=== PATIENT | female | born 1980 | race Hispanic/Latino ===

== ENCOUNTER 2017-12-11 06:06 | Day surgery (SDC) | payer OTHER ==
[2017-12-10 13:36] VITALS: BMI 18.4
[2017-12-11] MEDS ORDERED: Clindamycin 600mg/50ml NS 600 MG/50 ML BAG IVPB ONE (07:13)
[2017-12-11] MEDS ORDERED: Bupivacaine HCl 0.25% PF (10 ml) Inj ONE (07:13)
[2017-12-11] MEDS ORDERED: Propofol 10 mg/ml Inj (20 ML) ONE (07:14)
[2017-12-11] MEDS ORDERED: Silver Nitrate Topical - Stick ONE (07:14)
[2017-12-11] MEDS ORDERED: Chlorhexidine Gluconate 2OZ GEL TP ONE (07:14)
[2017-12-11] MEDS ORDERED: Rocuronium 10 mg/ml (5 ml) ONE ×2 (07:15→09:39)
[2017-12-11] MEDS ORDERED: Succinylcholine 200 mg/10 ml Inj IV ONE (07:15)
[2017-12-11] MEDS ORDERED: Midazolam 2 MG/2 ML VIAL ONE (07:15)
[2017-12-11] MEDS ORDERED: ePHEDrine 50 mg/ml Inj ONE (07:15)
[2017-12-11 08:26] LABS: HEMOGLOBIN 11.2 g/dL (12.0-16.0); MEAN CELL VOLUME 85.2 fl (81.0-99.0); MEAN CORPUSCULAR HEMOGLOBIN 28.4 pg (27.0-31.0); MEAN CORPUSCULAR HGB CONC 33.3 g/dL (33.0-37.0); RBC 3.96 Mil/uL (3.80-5.20); RED CELL DISTRIBUTION WIDTH 15.2 % (11.5-14.5); WHITE BLOOD COUNT 5.1 K/uL (4.8-10.8)
[2017-12-11] MEDS ORDERED: Phenylephrine 10 mg/ml Inj ONE (08:31)
[2017-12-11] MEDS ORDERED: Lactated Ringer's 1,000 ML IV ONE ×3 (09:00→09:45)
[2017-12-11] MEDS ORDERED: Morphine 1 mg/ml preservative-free Inj(Duramorph) ONE (09:18)
[2017-12-11] MEDS ORDERED: Neostigmine 1:1000 (1 mg/ml) Inj ONE (09:22)
[2017-12-11] MEDS ORDERED: Oxycodone/Acetaminophen 5/325 mg Tab PO PRN (11:47)
[2017-12-11] MEDS ORDERED: Lactated Ringer's 1,000 ML IV SCH (12:00)
[2017-12-11] MEDS: HYDROmorphone 0.5 mg/0.5 ml ISec IVP PRN ×4 (12:00→14:00)
[2017-12-11 12:13] VITALS: RESP 18
[2017-12-11] MEDS ORDERED: Oxycodone/Acetaminophen 5/325 mg Tab PO ONE (17:40)
[2017-12-11 19:45] VITALS: BP 104/67; PULSE 78; TEMP 98; O2SAT 99
--- NOTE | 2017-12-26 04:49 | OP ---
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 PROCEDURES PERFORMED: Cystoscopy with bilateral ureteral catheterization, robotic da Rita drainage and debridement of right ovarian abscess and debridement of pelvic inflammatory disease and excision of endometriosis. SURGEON: Rafa Davis MD WATCH HAIRSPRING ASSEMBLER: Addy Mcgraw MD from General Surgery. ESTIMATED BLOOD LOSS: 50 mL. COMPLICATIONS: None. SPECIMEN: Multiple specimens sent to Pathology. INDICATIONS FOR THE PROCEDURE: The patient is a 37-year-old who had undergone in around 07/2017 an oocyte retrieval for purpose of egg cryopreservation. At that point, an endometrioma was drained or entered with needle procedure and an infection had occurred. The patient subsequently developed signs of pelvic infection and was hospitalized at [facility] and given two days of intravenous antibiotics and sent home on oral antibiotics. After that, she appeared to have improved for symptomatology, but a left ovarian abscess had persisted. She had continue some antibiotics only for few weeks following. I evaluated with the CT scan and an MRI, the size of the mass appeared to be smaller. The patient was very much against losing her ovary, so we opted to proceed with the robotic approach and with maximum effort for ovarian preservation. All risks and benefits of the procedure were discussed with the patient including the possibility of removing the ovary and/or tubes but it was agreed with the patient that any effort would be performed to try to preserve her future fertility. The patient signed the consent and was taken to the OR. DESCRIPTION OF PROCEDURE: After adequate anesthesia was obtained, the patient was placed in the dorsal lithotomy position. She was prepped and draped. A time-out was taken according to the hospital policy. Extreme attention was made to having the patient appropriately and to making sure that her hips were not hyperflexed or hyperextend. Attention was first in the vaginal area where the cystoscopy was performed and IC-Green were injected in each individual ureter utilizing an open ended catheter. This was done because of potential adhesions and improve ability to visualize the catheter. Prophylactic antibiotics were given. Attention was in the abdomen, then an open laparoscopy was performed. The abdominal cavity was entered and three additional ports were placed, left upper quadrant, left mid quadrant and right upper quadrant. The pelvis was visualized revealing presence of adhesions. The appendix was pulled into a what appeared to be a mass. The right ovary transformed in a large mass. The first step of the procedure was a very small incision was made in the mass and cannula was inserted. Abundant amount of purulent like material was obtained and sent to Pathology. No spillage of the material although was done. The inside of the mass was lavaged and fibrinous area inside the ovary of the cyst was debrided and also placed in the bag and sent to Pathology. No spillage at all was performed of any disease. The appendix, which was attached to the mass and pulled into it, was removed by Dr. Mcgraw from General Surgery who will dictate this separately. Additional inflammatory areas were present and endometriosis in the right pelvic sidewall and they were excised including areas in the posterior cul-de-sac as well in the left pelvic sidewall. Any area that appeared to be either inflamed or infected was debrided and the pelvis was left in good condition at the end of the procedure. The pelvis was abundantly lavaged, but as I said before no spillage of any inflammatory or purulent material was made throughout the procedure. At this point, the instruments were removed. The da Rita scope was removed. The incisions were then closed with 0 PDS for the fascia and 4-0 Monocryl for the skin. At the end of the procedure, all tapes and instrument counts were correct, and the patient was taken to the recovery room in excellent condition. Rafa Davis MD
== END 2017-12-11 19:40 | disposition home or self-care (01) ==
LOC: H.OPSURG 06:06
PROVIDERS: ATTEND Obstetrics & Gynecology Reproductive Endocrinology
DX: N80.1 Endometriosis of ovary (principal); J45.909 Unspecified asthma, uncomplicated; D64.9 Anemia, unspecified; F90.9 Attention-deficit hyperactivity disorder, unspecified type; N73.9 Female pelvic inflammatory disease, unspecified; N80.3 Endometriosis of pelvic peritoneum; N83.201 Unspecified ovarian cyst, right side
CPT/HCPCS: 36415; 58662; 85027; 86850; 86900; 87070; 88304; 88305; 88307; C1729; J0330; J1170; J1885; J2001; J2250; J2270; J2370; J2405; J2704; J2710; J2765; J3010; J7030; J7040; J7120

== ENCOUNTER 2017-12-15 19:39 | Inpatient (IN) | payer OTHER ==
[2017-12-15 19:39] VITALS: BMI 18.4
[2017-12-15] MEDS ORDERED: Iohexol 240 (50 ml) PO ONE (20:08)
[2017-12-15] MEDS ORDERED: Iohexol 240 (50 ml) ONE (20:37)
[2017-12-15 20:42] LABS: VENOUS BLOOD GAS BASE EXCESS -4.9 mmol/L (0.0-2.0); VENOUS BLOOD GAS PCO2 71 mmHg (40-60); VENOUS BLOOD GAS PO2 26 mm/Hg (30-55); VENOUS BLOOD PH 7.16 (7.32-7.43)
[2017-12-15 20:51] LABS: BASO % 0.4 % (0.0-2.0); EOS # 0.3 K/uL (0.0-0.7); EOS % 2.2 % (0.0-4.0); HEMOGLOBIN 10.6 g/dL (12.0-16.0); LYMPH # 0.6 K/uL (1.0-4.3); MEAN CELL VOLUME 85.5 fl (81.0-99.0); MEAN CORPUSCULAR HEMOGLOBIN 28.3 pg (27.0-31.0); MEAN CORPUSCULAR HGB CONC 33.1 g/dL (33.0-37.0); MEAN PLATELET VOLUME 9.3 fl (7.2-11.7); MONO # 0.8 K/uL (0.0-0.8); MONO % 6.2 % (0.0-10.0); NEUT # 11.2 K/uL (1.8-7.0); NEUT % 86.2 % (50.0-75.0); PLATELET COUNT 346 K/uL (130-400); RBC 3.74 Mil/uL (3.80-5.20)
[2017-12-15 21:02] LABS: SQUAMOUS EPITHIAL 9 /hpf (0-5); URINE BACTERIA RARE (<OCC); URINE BILIRUBIN NEGATIVE (NEGATIVE); URINE BLOOD MODERATE (NEGATIVE); URINE CLARITY SLIGHTY-CLOUDY (Clear); URINE COLOR STRAW (YELLOW); URINE GLUCOSE (UA) NEG (Normal); URINE LEUKOCYTE ESTERASE SMALL Leu/uL (Negative); URINE PROTEIN NEGATIVE (NEGATIVE); URINE UROBILINOGEN 0.2-1.0 mg/dL (0.2-1.0)
[2017-12-15 21:03] LABS: ALB/GLOB RATIO 0.9 (1.0-2.1); ALBUMIN 3.6 g/dL (3.5-5.0); ALT/SGPT 50 U/L (9-52); AST/SGOT 34 U/L (14-36); BLOOD UREA NITROGEN 5 mg/dl (7-17); GFR AFRICAN-AMERICAN > 60; GFR NON-AFRICAN AMERICAN > 60; LIPASE 66 U/L (23-300)
[2017-12-15 21:04] LABS: INR 1.1 (0.9-1.2); PARTIAL THROMBOPLASTIN TIME 35.1 Seconds (25.6-37.1); PROTHROMBIN TIME 11.8 Seconds (9.8-13.1)
[2017-12-15 21:33] LABS: BANDS 1 % (0-2); EOSINOPHIL 1 % (0-7); LYMPHOCYTE 6 % (20-50); MONOCYTE 4 % (0-10); NEUTROPHIL 81 % (42-75); REACTIVE LYMPHOCYTES 7 % (0-0); TOTAL CELLS COUNTED 100
[2017-12-15 21:34] LABS: ANISOCYTOSIS SLIGHT; HYPOCHROMIC SLIGHT
[2017-12-15 21:36] LABS: PLATELET ESTIMATE NORMAL (NORMAL); TEARDROP CELLS SLIGHT
[2017-12-15] MEDS ORDERED: Clindamycin 600mg/50ml D5W 600 MG/50 ML VIAL IVPB STA (21:40)
[2017-12-15] MEDS ORDERED: Aztreonam 1 GM in Sodium Chloride 0.9% 100 ML IVPB STA (21:40)
[2017-12-15] MEDS ORDERED: Iohexol 300 100 ML IJ ONE (22:25)
[2017-12-15] MEDS ORDERED: Sodium Chloride 0.9% 50 ML IV ONE (22:25)
[2017-12-15] MEDS ORDERED: Sodium Chloride 0.9% 1,000 ML IV STA (22:30)
--- NOTE | 2017-12-15 22:32 | ED PDOC ---
HPI: Fever Fever Onset Was: 12/14/17 Symptoms Associated With Fever: denies: Vomiting, Diarrhea, Rash Additional Comments: 37 year old female presents to the ED complaining of fever onset yesterday postop day 4 pelvic abscess resection. States she developed chills on day to after appendectomy. Patient took Cipro last night but the fever persisted after 2 dosages. Also reports of diffuse swelling, mild sore throat and nausea. She took Tylenol without any relief. Denies cough, diarrhea, vomiting or rash. PMD: Dr. Nur and Dr. Joseph Past Medical History Reviewed: Historical Data, Nursing Documentation, Vital Signs Vital Signs: Last Vital Signs Temp 99.4 F 12/15/17 22:29 Pulse 83 12/15/17 22:29 Resp 16 12/15/17 22:29 BP 103/75 12/15/17 22:29 Pulse Ox 100 12/15/17 22:36 - Medical History PMH: Anemia (no meds), Anxiety Denies: Chronic Kidney Disease - Surgical History Surgical History: Cholecystectomy (2007) - Family History Family History: States: No Known Family Hx - Social History Current smoker - smoking cessation education provided: No - Home Medications Home Medications: Ambulatory Orders Medication Instructions Recorded Amphetamine Sulfate [Evekeo] 5 mg PO DAILY 12/10/17 clonazePAM [Klonopin] 0.5 mg PO DAILY PRN 12/10/17 Ketorolac Tromethamine [Toradol] 10 mg PO Q6 PRN 12/11/17 Ondansetron HCl [Zofran] 4 mg PO Q8 PRN 12/11/17 oxyCODONE/Acetaminophen [Percocet 5 - 325 mg PO Q6 PRN 12/11/17 5/325 mg Tab] - Allergies Allergies/Adverse Reactions: Allergies Allergy/AdvReac Type Severity Reaction Status Date / Time Penicillins Allergy RASH Verified 12/15/17 19:54 Sulfa (Sulfonamide Allergy RASH Verified 12/15/17 19:54 Antibiotics) Review of Systems ROS Statement: Except As Marked, All Systems Reviewed And Found Negative (As per HPI, otherwise negative) Constitutional: Positive for: Fever, Chills ENT: Positive for: Throat Pain Respiratory: Negative for: Cough Gastrointestinal: Positive for: Nausea (mild). Negative for: Vomiting, Diarrhea Skin: Positive for: Other (mild swelling). Negative for: Rash Physical Exam - Reviewed Nursing Documentation Reviewed: Yes Vital Signs Reviewed: Yes - Physical Exam Appears: Positive for: Non-toxic, No Acute Distress (tired) Head Exam: Positive for: ATRAUMATIC, NORMOCEPHALIC Skin: Positive for: Warm, Dry Eye Exam: Positive for: EOMI, PERRL ENT: Positive for: Pharynx Is (clear), Other (tacky mucus membranes) Neck: Positive for: Painless ROM, Supple Cardiovascular/Chest: Positive for: Tachycardia (regular rhythm) Respiratory: Positive for: Normal Breath Sounds. Negative for: Respiratory Distress Gastrointestinal/Abdominal: Positive for: Soft, Other (ecchymosis on abdomen and dressing on wound is clean and dry). Negative for: Mass, Guarding, Rebound Back: Positive for: Normal Inspection. Negative for: Decreased ROM Extremity: Positive for: Normal ROM. Negative for: Deformity Lymphatic: Negative for: Adenopathy Neurologic/Psych: Positive for: Alert. Negative for: Motor/Sensory Deficits - Laboratory Results Result Diagrams: 12/17/17 05:15 12/17/17 05:15 - ECG O2 Sat by Pulse Oximetry: 100 (RA) Pulse Ox Interpretation: Normal Medical Decision Making Medical Decision Making: Time: 2007 Initial Impression: fever postop Differential Diagnosis includes but is not limited to: pneumonia, UTI, wound infection, intra-abdominal abscess, sepsis 37 yo postop day 4 for surgery for pelvic abscess resection, endometriosis, and appendectomy, reporting fever with no improved after 36 hours antibiotics. Ddx include but not limited to persistent abscess, UTI, pneumonia, wound infection, intraabdominal infection, sepsis. Initial Plan: --VBG shock panel --ABD Pelvis PO & IV Contrast CT --CMP --Lipase --Magnesium --Phosphorous --Infectious Disease Consult --MANAGER GLO[employer] COMMUNICATIONS Consult --ED Urine Dipstick --CBC W/ Differential --PTT --Prothrombin Time --Chest Portable --Azactam 1gm --Cleocin 600mg --Dilaudid 0.5mg --Toradol 15mg --Tylenol 650mg --Zofran 4mg --Blood Culture --Urinalysis --Reevaluation Case discussed with Dr. Mcgraw to start on antibiotics and CT of abdomen pelvis PO & IV contrast ordered. Evaluated by resident assistant cna Dr. Schwarz. Also discussed with Dr. Penny for infectious disease consult and antibiotics ordered. Pt to be hospitalized for management. [address] scan inconclusive due to lack of contrast through small bowel. Will repeat for delayed images. Still concern for pelvic abscess. DW patient findings and plan of care. Scribe Attestation: Documented by Alexis Velásquez, acting as a scribe for Tamica Grubbs MD Provider Scribe Attestation: All medical record entries made by the Scribe were at my direction and personally dictated by me. I have reviewed the chart and agree that the record accurately reflects my personal performance of the history, physical exam, medical decision making, and the department course for this patient. I have also personally directed, reviewed, and agree with the discharge instructions and disposition. Disposition - Clinical Impression Clinical Impression: Pelvic abscess Counseled Patient/Family Regarding: Studies Performed - Disposition Disposition Time: 22:00 Condition: FAIR - Pt Status Changed To: Hospital Disposition Of: Inpatient - Admit Certification Admit to Inpatient:: After my assessment, the patient will require hospitalization for at least two midnights. This is because of the severity of symptoms shown, intensity of services needed, and/or the medical risk in this patient being treated as an outpatient. - POA Present On Arrival: None
[2017-12-15] MEDS ORDERED: Clindamycin 600mg/50ml NS 600 MG/50 ML BAG IVPB ONE (22:45)
--- NOTE | 2017-12-16 00:03 | CT ---
EXAM: CT Abdomen and Pelvis With Intravenous Contrast EXAM DATE/TIME: 12/15/2017 8:08 PM CLINICAL HISTORY: 37 years old, female; Pain; Abdominal pain; Prior surgery; Surgery date: 3-7 days post-operative; Surgery type: Appendectomy 12/11/2017. Pelvic abcess resection 12/11/2017. Endometrisis. Gall bladder removed; Additional info: Abd pain fever post surg TECHNIQUE: Axial computed tomography images of the abdomen and pelvis with intravenous contrast. All CT scans at this facility use one or more dose reduction techniques, viz.: automated exposure control; ma/kV adjustment per patient size (including targeted exams where dose is matched to indication; i.e. head); or iterative reconstruction technique. Coronal and sagittal reformatted images were created and reviewed. CONTRAST: 90 mL of [id number] administered intravenously. COMPARISON: There are no prior studies for comparison. FINDINGS: Lung bases: The heart size is normal. There is atelectasis at the lung bases. There are small effusions. ABDOMEN: Liver: unremarkable Gallbladder and bile ducts: Gallbladder is absent. Common duct is prominent. Pancreas: unremarkable Spleen: unremarkable Adrenals: unremarkable Kidneys and ureters: unremarkable Stomach and bowel: Stomach is partially distended with contrast. Rotation is normal. Small bowel is mildly dilated. There air-fluid levels. Small bowel is incompletely opacified with oral contrast which limits evaluation of the pelvis. There are multiple fluid-filled structures in the low pelvis, bowel loops versus abscess. There is enteric material in the terminal ileum. Appendix is surgically absent. There is moderate fecal material in the right colon. Left colon is incompletely distended which limits evaluation. PELVIS: Bladder: unremarkable Reproductive: Uterus and adnexal structures are unremarkable. ABDOMEN and PELVIS: Intraperitoneal space: There is free air in the abdomen. There is is a small amount of fluid in the pelvis. Bones/joints: There are no acute osseous abnormalities. Soft tissues: There is postoperative air in the left lower abdominal wall. Vasculature: Vascular structures are unremarkable. Lymph nodes: There is periaortic/retroperitoneal adenopathy. IMPRESSION: Postoperative free air and postoperative air in the left lower abdominal wall; limited evaluation of the pelvis due to incomplete small bowel opacification, unopacified small bowel loops versus pelvic abscess Additional nonemergent findings as described above.
--- NOTE | 2017-12-16 02:13 | CT ---
EXAM: CT Abdomen and Pelvis Without Intravenous Contrast CLINICAL HISTORY: 37 years old, female; Pain; Abdominal pain; Acute; Additional info: Delayed CT TECHNIQUE: Axial computed tomography images of the abdomen and pelvis without intravenous contrast. All CT scans at this facility use one or more dose reduction techniques, viz.: automated exposure control; ma/kV adjustment per patient size (including targeted exams where dose is matched to indication; i.e. head); or iterative reconstruction technique. Coronal and sagittal reformatted images were created and reviewed. COMPARISON: CT - ABD PELVIS PO IV CONTRAST 2017-12-15 22:43 FINDINGS: Lung bases: See below. Pleural space: Small bilateral pleural effusions with bibasilar atelectasis. Infiltrate not excluded. ABDOMEN: Liver: Mild intrahepatic biliary air. The liver is otherwise unremarkable for unenhanced technique. Gallbladder and bile ducts: There has been a cholecystectomy. Mild intrahepatic pneumobilia. No ductal dilation. Pancreas: Unremarkable. No ductal dilation. Spleen: Unremarkable. No splenomegaly. Adrenals: Unremarkable. No mass. Kidneys and ureters: There is contrast within the collecting system bilaterally. No obstructing stones. No hydronephrosis. Stomach and bowel: Mildly distended small bowel loops. There is contrast in the distal small bowel and colon. No obstruction. PELVIS: Appendix: There has been an appendectomy. Bladder: Distended with contrast and unremarkable. Reproductive: Unremarkable as visualized. ABDOMEN and PELVIS: Intraperitoneal space: A complex fluid collection in the pelvis is not well visualized on the current exam. However, the collection is highly suspicious for an abscess. This measures approximately 8.6 x 7.8 x 5 cm. Bones/joints: No acute fracture. No dislocation. Soft tissues: There is free intraperitoneal air again demonstrated. Soft tissue emphysema is noted in the left lateral abdominal wall. There is some fluid noted between the musculature of the abdominal wall. Findings may be related to recent surgery. Vasculature: Unremarkable. No abdominal aortic aneurysm. IMPRESSION: Complex pelvic free fluid highly suspicious for an abscess. Pneumoperitoneum, unchanged. Findings are likely postsurgical. Perforated viscus not completely excluded. Small bilateral pleural effusions with bibasilar atelectasis. Infiltrate not excluded. Mild intrahepatic pneumobilia. Probably secondary to previous sphincterotomy. Cholecystectomy. THIS REPORT CONTAINS FINDINGS THAT MAY BE CRITICAL TO PATIENT CARE. The findings were verbally communicaated via telephone conference with Dr. Nguyen at 2:12 AM EDT on 12/16/2017. The findings were acknowledged and understood. The patient has been admitted. Dr. Nguyen will discuss the findings with the surgical team.
[2017-12-16] MEDS ORDERED: Sodium Chloride 0.9% 1,000 ML IV SCH ×2 (05:15→18:30)
[2017-12-16] MEDS ORDERED: Aztreonam 1 GM in Sodium Chloride 0.9% 100 ML IVPB SCH (09:00)
[2017-12-16] MEDS ORDERED: Enoxaparin 30 mg Syringe SC SCH (09:00)
[2017-12-16] MEDS ORDERED: Clindamycin in NS 300 MG/50 ML BAG IVPB SCH (09:00)
[2017-12-16] MEDS: Acetaminophen 650mg/20.3ml solution UD PO PRN ×2 (09:45→20:40)
[2017-12-16] MEDS ORDERED: Lidocaine/Prilocaine CREAM 5GM TP ONE (10:13)
--- NOTE | 2017-12-16 11:24 | CP.PCM.HP ---
History of Present Illness - History of Present Illness History of Present Illness: Surgery H & P 37 F w PMH of ovarian abscess and had recent robotic laparoscopic surgery for ovarian abscess cystectomy, appendectomy and endometriosis removal last Sunday came to ED with fever and abd pain. PT reports that she had endometrioma of ovaries in the past and had the egg retrieval in July . SHe developed ovarian abscess and has been admitted to hospital in [facility] for 5 days for IV ABX. REports nausea but no emesis. Reporst incisional pain and low abd pain. Denies dysuria, hematuria, diarrhea, SOB, cough, rash, leg swelling. Pt reports that she has been using incentive spirometry. Tylenol didn't relive sx. LMP 12/06/2017 PMH : see above PSH : See above Present on Admission - Present on Admission Any Indicators Present on Admission: No Past Patient History - Past Medical History & Family History Past Medical History?: Yes - Past Social History Smoking Status: Former Smoker - CARDIAC Hx Cardiac Disorders: No - PULMONARY Hx Respiratory Disorders: Yes Hx Asthma: Yes - NEUROLOGICAL Hx Neurological Disorder: No - HEENT Hx HEENT Problems: No - RENAL Hx Chronic Kidney Disease: No - ENDOCRINE/METABOLIC Hx Endocrine Disorders: No - HEMATOLOGICAL/ONCOLOGICAL Hx Blood Disorders: Yes Hx Anemia: Yes (no meds) - INTEGUMENTARY Hx Dermatological Problems: No - MUSCULOSKELETAL/RHEUMATOLOGICAL Hx Musculoskeletal Disorders: No Hx Falls: No - GASTROINTESTINAL Hx Gastrointestinal Disorders: No - GENITOURINARY/GYNECOLOGICAL Hx Genitourinary Disorders: No - PSYCHIATRIC Hx Psychophysiologic Disorder: Yes Hx Anxiety: Yes Hx Substance Use: No - SURGICAL HISTORY Hx Surgeries: Yes Hx Cholecystectomy: Yes (2007) Other/Comment: Lap excision ovarian abscess with AP December 11, 2017 - ANESTHESIA Hx Anesthesia: Yes Hx Anesthesia Reactions: No Hx Malignant Hyperthermia: No Has any member of the family had a problem w/ anesthesia?: No Meds Allergies/Adverse Reactions: Allergies Allergy/AdvReac Type Severity Reaction Status Date / Time Penicillins Allergy RASH Verified 12/15/17 19:54 Sulfa (Sulfonamide Allergy RASH Verified 12/15/17 19:54 Antibiotics) Physical Exam - Constitutional Appears: Non-toxic - Head Exam Head Exam: ATRAUMATIC, NORMAL INSPECTION, NORMOCEPHALIC - Eye Exam Eye Exam: EOMI, Normal appearance, PERRL Pupil Exam: NORMAL ACCOMODATION, PERRL - ENT Exam ENT Exam: Mucous Membranes Moist, Normal Exam - Neck Exam Neck exam: Positive for: Normal Inspection - Respiratory Exam Respiratory Exam: Clear to Auscultation Bilateral, NORMAL BREATHING PATTERN - Cardiovascular Exam Cardiovascular Exam: REGULAR RHYTHM - GI/Abdominal Exam GI & Abdominal Exam: Normal Bowel Sounds, Soft, Tenderness. absent: Distended, Firm, Guarding, Hernia Additional comments: Low abd and incision TTP - Extremities Exam Extremities exam: Positive for: full ROM, normal inspection. Negative for: pedal edema, tenderness - Back Exam Back exam: NORMAL INSPECTION - Neurological Exam Neurological exam: Alert, CN II-XII Intact, Normal Gait, Oriented x3, Reflexes Normal - Psychiatric Exam Psychiatric exam: Normal Affect, Normal Mood - Skin Skin Exam: Dry, Intact, Warm Additional comments: ecchymosis on incisions Results - Vital Signs Recent Vital Signs: Last Vital Signs Temp 100.1 F H 12/16/17 07:42 Pulse 100 H 12/16/17 07:42 Resp 19 12/16/17 07:42 BP 103/66 12/16/17 07:42 Pulse Ox 97 12/16/17 07:42 - Labs Result Diagrams: 12/15/17 20:42 12/15/17 20:42 Labs: Laboratory Results - last 24 hr 12/15/17 12/15/17 12/15/17 20:36 20:42 20:42 WBC 13.0 H D RBC 3.74 L Hgb 10.6 L Hct 32.0 L MCV 85.5 MCH 28.3 MCHC 33.1 RDW 15.0 H Plt Count 346 MPV 9.3 Neut % (Auto) 86.2 H Lymph % (Auto) 5.[address] [facility] % (Auto) 6.2 Eos % (Auto) 2.2 Baso % (Auto) 0.4 Neut # (Auto) 11.2 H Lymph # (Auto) 0.[address] [facility] # (Auto) 0.8 Eos # (Auto) 0.3 Baso # (Auto) 0.0 Neutrophils % (Manual) 81 H Band Neutrophils % 1 Lymphocytes % (Manual) 6 L Reactive Lymphs % 7 H Monocytes % (Manual) 4 Eosinophils % (Manual) 1 Platelet Estimate Normal Hypochromasia (manual) Slight Anisocytosis (manual) Slight Macrocytosis (manual) Slight Tear Drop Cells Slight PT INR APTT pO2 26 L VBG pH 7.16 L* VBG pCO2 71 H* VBG HCO3 19.3 VBG Total CO2 27.5 VBG O2 Sat (Calc) 38.4 L VBG Base Excess -4.9 L VBG Potassium > 20.0 H* Sodium 123.0 L 136 Chloride 100.0 96 L Glucose 95 Lactate 1.5 FiO2 21.0 Crit Value Called To Vivienne guardado md Crit Value Called By 333 Crit Value Read Back Y Blood Gas Notified Time 2040 Potassium 3.9 Carbon Dioxide 24 Anion Gap 20 BUN 5 L Creatinine 0.5 L Est GFR ( Amer) > 60 Est GFR (Non-Af Amer) > 60 Random Glucose 96 Calcium 9.0 Phosphorus 4.0 Magnesium 2.0 Total Bilirubin 0.4 AST 34 ALT 50 Alkaline Phosphatase 148 H Total Protein 7.8 Albumin 3.6 Globulin 4.2 H Albumin/Globulin Ratio 0.9 L Lipase 66 Venous Blood Potassium > 20.0 H* Urine Color Urine Clarity Urine pH Ur Specific [place] Urine Protein Urine Glucose (UA) Urine Ketones Urine Blood Urine Nitrate Urine Bilirubin Urine Urobilinogen Ur Leukocyte Esterase Urine RBC (Auto) Urine Microscopic WBC Ur Squamous Epith Cells Urine Bacteria 12/15/17 12/15/17 20:42 20:42 WBC RBC Hgb Hct MCV MCH MCHC RDW Plt Count MPV Neut % (Auto) Lymph % (Auto) [facility] % (Auto) Eos % (Auto) Baso % (Auto) Neut # (Auto) Lymph # (Auto) [facility] # (Auto) Eos # (Auto) Baso # (Auto) Neutrophils % (Manual) Band Neutrophils % Lymphocytes % (Manual) Reactive Lymphs % Monocytes % (Manual) Eosinophils % (Manual) Platelet Estimate Hypochromasia (manual) Anisocytosis (manual) Macrocytosis (manual) Tear Drop Cells PT 11.8 INR 1.1 APTT 35.1 pO2 VBG pH VBG pCO2 VBG HCO3 VBG Total CO2 VBG O2 Sat (Calc) VBG Base Excess VBG Potassium Sodium Chloride Glucose Lactate FiO2 Crit Value Called To Crit Value Called By Crit Value Read Back Blood Gas Notified Time Potassium Carbon Dioxide Anion Gap BUN Creatinine Est GFR ( Amer) Est GFR (Non-Af Amer) Random Glucose Calcium Phosphorus Magnesium Total Bilirubin AST ALT Alkaline Phosphatase Total Protein Albumin Globulin Albumin/Globulin Ratio Lipase Venous Blood Potassium Urine Color Straw Urine Clarity Slighty-cloudy Urine pH 7.0 Ur Specific [place] < 1.005 Urine Protein Negative Urine Glucose (UA) Neg Urine Ketones 20 Urine Blood Moderate Urine Nitrate Negative Urine Bilirubin Negative Urine Urobilinogen 0.2-1.0 Ur Leukocyte Esterase Small Urine RBC (Auto) 2 Urine Microscopic WBC 20 H Ur Squamous Epith Cells 9 H Urine Bacteria Rare Assessment & Plan - Assessment and Plan (Free Text) Assessment: Post op fever likely 2/2 atelectasis and possible pelvic abscess CT: Fluids collection 8 x 8 x5 . Post op changes. -IR evaluation -ID consult -ABX -Trend labs. -Monitor VS DW Dr. Mcgraw
--- NOTE | 2017-12-16 12:54 | RAD ---
HISTORY: fever postop COMPARISON: No prior. FINDINGS: LUNGS: No active pulmonary disease. PLEURA: No significant pleural effusion identified, no pneumothorax apparent. CARDIOVASCULAR: Normal. OSSEOUS STRUCTURES: No significant abnormalities. VISUALIZED UPPER ABDOMEN: Pneumoperitoneum consistent with recent postoperative status. This was previously noted on CT examination of 12/15/2017 and 12/16/2017. OTHER FINDINGS: None. IMPRESSION: Pneumoperitoneum. No infiltrate/ effusion.
[2017-12-16] MEDS: HYDROmorphone 0.5 mg/0.5 ml ISec IVP PRN ×2 (13:28→20:17)
[2017-12-16 15:03] LABS: VENOUS BLOOD GAS BASE EXCESS 6.6 mmol/L (0.0-2.0); VENOUS BLOOD GAS PCO2 47 mmHg (40-60); VENOUS BLOOD GAS PO2 14 mm/Hg (30-55); VENOUS BLOOD PH 7.44 (7.32-7.43)
--- NOTE | 2017-12-16 15:03 | CP.PCM.PN ---
Subjective - Date & Time of Evaluation Date of Evaluation: 12/16/16 Time of Evaluation: 15:00 - Subjective Subjective: I D NOTE PATIENT EXAMINED ,EMR REVIEWED HISTORY TAKEN FROM PATIENT AND FAMILY HAVE STARTED CLINDAMYCIN/AZACTAM WILL CCONTINUE PENDING LABS AND CLINICAL RESPONSE .FULL CONSULT DICTATED Objective - Vital Signs/Intake and Output Vital Signs (last 24 hours): Temp Pulse Resp BP Pulse Ox 100.1 F H 100 H 19 103/66 97 12/16/17 07:42 12/16/17 07:42 12/16/17 07:42 12/16/17 07:42 12/16/17 07:42 - Medications Medications: Current Medications Acetaminophen (Tylenol 325mg Tab) 650 mg PO Q4 PRN PRN Reason: Fever >100.4 F Last Admin: 12/16/17 00:15 Dose: 650 mg Acetaminophen (Tylenol 650mg/20.3ml Solution Ud) 650 mg PO Q6 PRN PRN Reason: Pain, moderate (4-7) Last Admin: 12/16/17 09:45 Dose: 650 mg Enoxaparin Sodium (Lovenox) 30 mg SC DAILY DENIS PRN Reason: Protocol Hydromorphone HCl (Dilaudid) 0.5 mg IVP Q4 PRN PRN Reason: Pain, severe (8-10) Last Admin: 12/16/17 13:28 Dose: 0.5 mg Dextrose/Sodium Chloride (Dextrose 5%-0.9% Ns 500 Ml) 1,000 mls @ 100 mls/hr IV .Q10H [facility] Last Admin: 12/16/17 02:35 Dose: 100 mls/hr Aztreonam 1 gm/ Sodium (Chloride) 100 mls @ 100 mls/hr IVPB Q12 DENIS PRN Reason: Protocol Last Admin: 12/16/17 09:48 Dose: 100 mls/hr Clindamycin in NS (Clindamycin 300 Mg/50 Ml-Ns) 300 mg in 50 mls @ 50 mls/hr IVPB Q12 DENIS PRN Reason: Protocol Last Admin: 12/16/17 09:47 Dose: 50 mls/hr Ondansetron HCl (Zofran Odt) 4 mg PO Q8H PRN PRN Reason: Nausea/Vomiting - Labs Labs: 12/15/17 20:42 12/15/17 20:42 PT 11.8 Seconds (9.8-13.1) 12/15/17 20:42 INR 1.1 (0.9-1.2) 12/15/17:42 APTT 35.1 Seconds (25.6-37.1) 12/15/17 20:42
[2017-12-16 15:20] LABS: HEMOGLOBIN 9.9 g/dL (12.0-16.0); MEAN CELL VOLUME 84.5 fl (81.0-99.0); MEAN CORPUSCULAR HEMOGLOBIN 28.2 pg (27.0-31.0); MEAN CORPUSCULAR HGB CONC 33.4 g/dL (33.0-37.0); RBC 3.49 Mil/uL (3.80-5.20); RED CELL DISTRIBUTION WIDTH 14.9 % (11.5-14.5); WHITE BLOOD COUNT 16.6 K/uL (4.8-10.8)
[2017-12-16 15:30] LABS: INR 1.2 (0.9-1.2); PROTHROMBIN TIME 13.6 Seconds (9.8-13.1)
[2017-12-16 15:41] LABS: ALB/GLOB RATIO 0.9 (1.0-2.1); ALBUMIN 3.1 g/dL (3.5-5.0); ALT/SGPT 42 U/L (9-52); AST/SGOT 26 U/L (14-36); BLOOD UREA NITROGEN 3 mg/dl (7-17); CALCIUM 8.8 mg/dL (8.4-10.2); GFR AFRICAN-AMERICAN > 60; GFR NON-AFRICAN AMERICAN > 60
[2017-12-16] MEDS ORDERED: metroNIDAZOLE 500mg/100ml NS 100 ML IVPB SCH (18:15)
--- NOTE | 2017-12-16 18:44 | CP.PCM.PN ---
Subjective - Date & Time of Evaluation Date of Evaluation: 12/16/17 Time of Evaluation: 18:40 - Subjective Subjective: I D NOTE PATIENT SPIKED TEMP 103, WBC:16.6 DISCUSSED C ENGINEERING PROJECT DESIGNER AND ADVISED CHANGE IN RX TO VANCOMYCIN FLAGYL ,AND TOBRAMYCIN .WILL LIKELY NEED IR AND/OR SURGICAL INVERVENTION Objective - Vital Signs/Intake and Output Vital Signs (last 24 hours): Temp Pulse Resp BP Pulse Ox 103 F H 106 H 18 93/57 L 100 12/16/17 16:54 12/16/17 16:54 12/16/17 16:54 12/16/17 16:54 12/16/17 16:54 - Medications Medications: Current Medications Acetaminophen (Tylenol 325mg Tab) 650 mg PO Q4 PRN PRN Reason: Fever >100.4 F Last Admin: 12/16/17 16:02 Dose: 650 mg Acetaminophen (Tylenol 650mg/20.3ml Solution Ud) 650 mg PO Q6 PRN PRN Reason: Pain, moderate (4-7) Last Admin: 12/16/17 09:45 Dose: 650 mg Enoxaparin Sodium (Lovenox) 30 mg SC DAILY DENIS PRN Reason: Protocol Hydromorphone HCl (Dilaudid) 0.5 mg IVP Q4 PRN PRN Reason: Pain, severe (8-10) Last Admin: 12/16/17 13:28 Dose: 0.5 mg Tobramycin Sulfate 80 mg/ (Sodium Chloride) 102 mls @ 102 mls/hr IVPB Q12H DENIS Vancomycin HCl 1 gm/ Sodium (Chloride) 250 mls @ 166.667 mls/hr IVPB Q12 DENIS PRN Reason: Protocol Metronidazole (Flagyl 500mg/100ml Ns) 100 mls @ 100 mls/hr IVPB Q8 DENIS PRN Reason: Protocol Sodium Chloride (Sodium Chloride 0.9%) 1,000 mls @ 999 mls/hr IV .Q1H1M DENIS Stop: 12/17/17 18:20 Sodium Chloride (Sodium Chloride 0.9%) 1,000 mls @ 150 mls/hr IV .Q6H40M [facility] Stop: 12/17/17 18:32 Ondansetron HCl (Zofran Odt) 4 mg PO Q8H PRN PRN Reason: Nausea/Vomiting - Labs Labs: 12/16/17 15:10 12/16/17 15:10 PT 13.6 Seconds (9.8-13.1) H 12/16/17 15:10 INR 1.2 (0.9-1.2) 12/16/17 15:10 APTT 35.1 Seconds (25.6-37.1) 12/15/17 20:42
[2017-12-16] MEDS: Sodium Chloride 0.9% 1,000 ML IV SCH ×2 (19:54→22:18)
--- NOTE | 2017-12-17 00:58 | CON ---
CRITICAL CARE CONSULTATION DATE: 12/16/2017 LOCATION: The patient in room 622, being admitted to ICU. HISTORY OF PRESENT ILLNESS: Ms. Ash is a 37-year-old female with past medical history significant for ovarian abscess, had status post abscess, status post robotic laparoscopic surgery for ovarian abscess, cystectomy, appendectomy, and endometriosis removal last Sunday, admitted through emergency room, and complaining of fever and abdominal pain. Reportedly, she had endometrioma of ovaries in the past and had the retrieval done in July. She developed ovarian abscess and has been admitted to the hospital in for 5 days for IV antibiotics. The patient reports nausea, but no vomiting and also associated with incisional pain, lower abdominal pain, fever, and chills. The patient's last menstrual period 12/06/2017. PAST MEDICAL HISTORY: As noted plus asthma and former smoker. PAST SURGICAL HISTORY: As noted above. CURRENT MEDICATIONS: Include Tylenol 650 every 4 hours p.r.n., Lovenox 30 mg subcutaneously daily, Dilaudid 0.5 mg IV every 4 hours p.r.n. for pain, Flagyl 500 mg every 8 hours., Zofran 4 mg p.o. every 8 hours p.r.n., sodium chloride given bolus and running at 150 mL per hour, tobramycin 80 mg IV every 12 hours, and vancomycin 1 g IV every 12 hours. ALLERGIES: PENICILLIN AND SULFA. PHYSICAL EXAMINATION: VITAL SIGNS: Temperature 103, heart rate 106, blood pressure 93/57, respiratory rate 18, and saturating 100% on room air. HEAD, EYES, EARS, NOSE AND THROAT: Pupils equal, round, and reactive to light and accommodation. Extraocular muscles intact. Conjunctivae pink. Sclerae white. NECK: Supple. Oral mucosa moist. CHEST: Bilateral breath sounds diminished in intensity. Clear to auscultation. HEART: Rhythm regular. S1 and S2 normal. ABDOMEN: Bowel sounds present. Soft. Mild distention. EXTREMITIES: No palpable cord. DP palpable. NEUROLOGIC: Nonfocal. LABORATORY DATA: WBC 16.6, hemoglobin 9.9, hematocrit 29.5, and platelet count of 302. PT 13.6 and INR 1.2. VBG; lactate 1.1. SMA-7; sodium 134, potassium 3.9, chloride 96, CO2 of 26, blood urea nitrogen 3, creatinine 0.5, anion gap 12, random glucose 131, calcium 8.8, phosphorus 4, and magnesium 2. Total bilirubin 0.3, AST 26, ALT 42, alkaline phosphatase 129, total protein is 6.7, albumin 3.1, and lipase 66. Microbiology report pending. Chest x-ray from yesterday pneumoperitoneum consistent with recent postoperative status. CT abdomen and pelvis, pneumoperitoneum complex pelvic free fluid highly suspicious for abscess, mild intrahepatic pneumobilia secondary to previous sphincterotomy. IMPRESSION AND PLAN: 1. Neurologic: Alert, awake, and oriented x3. 2. Pulmonary: Postoperative atelectasis. Continue incentive spirometry. 3. Cardiac: Hypotension secondary to hypovolemia/sepsis. 4. Infectious disease: Sepsis secondary to possible pelvic abscess, status post robotic surgery with resection of pelvic abscess. Appreciate ID followup, currently on flagyl,vancomycin and tobramycin. ALLERGY TO PENICILLIN AND SULFA. 5. Hematology: Leukocytosis secondary to sepsis, anemia secondary to acute blood loss from previous surgery. 6. Endocrine: No acute issues. Maintain _ blood sugar less than 180. Continue deep venous thrombosis and gastrointestinal prophylaxis. Analgesics as needed to contol pain. Rancho Bell MD LEILANI
[2017-12-17] MEDS ORDERED: Lidocaine/Prilocaine CREAM 5GM TP ONE (01:19)
[2017-12-17] MEDS: HYDROmorphone 0.5 mg/0.5 ml ISec IVP PRN ×2 (03:15→07:47)
[2017-12-17] MEDS: metroNIDAZOLE 500mg/100ml NS 100 ML IVPB SCH ×3 (04:55→20:00)
[2017-12-17] MEDS: Sodium Chloride 0.9% 1,000 ML IV SCH ×4 (04:56→14:51)
[2017-12-17 06:05] LABS: BASO % 0.2 % (0.0-2.0); EOS # 0.2 K/uL (0.0-0.7); HEMOGLOBIN 9.4 g/dL (12.0-16.0); LYMPH # 0.6 K/uL (1.0-4.3); MEAN CELL VOLUME 84.9 fl (81.0-99.0); MEAN CORPUSCULAR HEMOGLOBIN 28.2 pg (27.0-31.0); MEAN CORPUSCULAR HGB CONC 33.2 g/dL (33.0-37.0); MEAN PLATELET VOLUME 9.1 fl (7.2-11.7); MONO # 1.5 K/uL (0.0-0.8); MONO % 8.1 % (0.0-10.0); NEUT # 16.2 K/uL (1.8-7.0); NEUT % 87.7 % (50.0-75.0); RBC 3.34 Mil/uL (3.80-5.20); RED CELL DISTRIBUTION WIDTH 15.3 % (11.5-14.5); WHITE BLOOD COUNT 18.5 K/uL (4.8-10.8)
[2017-12-17 06:06] LABS: ALB/GLOB RATIO 0.9 (1.0-2.1); ALT/SGPT 44 U/L (9-52); AST/SGOT 51 U/L (14-36); BLOOD UREA NITROGEN 3 mg/dl (7-17); CALCIUM 8.8 mg/dL (8.4-10.2); GFR AFRICAN-AMERICAN > 60; GFR NON-AFRICAN AMERICAN > 60
[2017-12-17] MEDS ORDERED: Enoxaparin 40 mg Syringe SC SCH (09:00)
[2017-12-17] MEDS ORDERED: Chlorhexidine Gluconate 1 APPL/PKT TP ONE (09:18)
--- NOTE | 2017-12-17 09:41 | CP.PCM.PN ---
Subjective - Date & Time of Evaluation Date of Evaluation: 12/17/17 Time of Evaluation: 07:20 - Subjective Subjective: General Surgery Pt S&E. Febrile overnight and this AM. WBC increased from 16.6 to 18.5. NPO. Case Discussed with IR, unable to access abscess at this time due to location. Pain controlled with pain meds. Objective - Vital Signs/Intake and Output Vital Signs (last 24 hours): Temp Pulse Resp BP Pulse Ox 101.9 F H 99 H 21 106/60 100 12/17/17 08:00 12/17/17 08:00 12/17/17 08:00 12/17/17 08:00 12/17/17 08:00 Intake and Output: 12/17/17 12/17/17 06:59 18:59 Intake Total 2600 Output Total 1250 Balance 1350 - Medications Medications: Current Medications Acetaminophen (Tylenol 650 Mg Supp) 650 mg SD Q6 PRN PRN Reason: Fever >100.4 F Enoxaparin Sodium (Lovenox) 40 mg SC DAILY DENIS PRN Reason: Protocol Hydromorphone HCl (Dilaudid) 0.5 mg IVP Q4 PRN PRN Reason: Pain, severe (8-10) Last Admin: 12/17/17 07:47 Dose: 0.5 mg Tobramycin Sulfate 80 mg/ (Sodium Chloride) 102 mls @ 102 mls/hr IVPB Q12H [facility] Last Admin: 12/17/17 05:21 Dose: 102 mls/hr Vancomycin HCl 1 gm/ Sodium (Chloride) 250 mls @ 166.667 mls/hr IVPB Q12 DENIS PRN Reason: Protocol Last Admin: 12/17/17 08:28 Dose: 166.667 mls/hr Sodium Chloride (Sodium Chloride 0.9%) 1,000 mls @ 999 mls/hr IV .Q1H1M [facility] Stop: 12/17/17 18:20 Last Admin: 12/16/17 21:03 Dose: 999 mls/hr Sodium Chloride (Sodium Chloride 0.9%) 1,000 mls @ 150 mls/hr IV .Q6H40M [facility] Stop: 12/17/17 18:32 Last Admin: 12/17/17 08:29 Dose: 150 mls/hr Metronidazole (Flagyl 500mg/100ml Ns) 100 mls @ 100 mls/hr IVPB Q8@0500,1300, 2100 DENIS PRN Reason: Protocol Last Admin: 12/17/17 04:55 Dose: 100 mls/hr Ondansetron HCl (Zofran Odt) 4 mg PO Q8H PRN PRN Reason: Nausea/Vomiting - Labs Labs: 12/17/17 05:15 12/17/17 05:15 PT 13.6 Seconds (9.8-13.1) H 12/16/17 15:10 INR 1.2 (0.9-1.2) 12/16/17 15:10 APTT 35.1 Seconds (25.6-37.1) 12/15/17 20:42 - Constitutional Appears: Non-toxic, No Acute Distress - Head Exam Head Exam: ATRAUMATIC, NORMOCEPHALIC - Eye Exam Eye Exam: EOMI. absent: Scleral icterus - Respiratory Exam Respiratory Exam: NORMAL BREATHING PATTERN. absent: Respiratory Distress - Cardiovascular Exam Cardiovascular Exam: Tachycardia ( 100-110 at time of exam), REGULAR RHYTHM - GI/Abdominal Exam GI & Abdominal Exam: Guarding (mild), Soft, Tenderness (in suprapubic area). absent: Distended, Firm, Rigid Additional comments: port sites C/D/I - Extremities Exam Extremities Exam: Normal Capillary Refill. absent: Pedal Edema - Neurological Exam Neurological Exam: Alert, Awake, Oriented x3 - Psychiatric Exam Psychiatric exam: Anxious - Skin Skin Exam: Dry, Warm Assessment and Plan - Assessment and Plan (Free Text) Assessment: 37F with pelvic abscess Plan: NPO planning OR today for drainage of intra-abdominal abscess IVF Analgesia D/W Dr. Mariluz Delarosa PGY4
[2017-12-17] MEDS ORDERED: Bupivacaine HCl 0.25% PF (10 ml) Inj ONE (12:39)
[2017-12-17] MEDS ORDERED: Lidocaine 2% Inj (20ml) ONE (12:40)
[2017-12-17] MEDS ORDERED: Propofol 10 mg/ml Inj (20 ML) ONE (12:44)
[2017-12-17] MEDS ORDERED: Midazolam 2 MG/2 ML VIAL ONE (12:45)
[2017-12-17] MEDS ORDERED: Neostigmine 1:1000 (1 mg/ml) Inj ONE (12:45)
[2017-12-17] MEDS ORDERED: Lidocaine 4% (Laryng-O-Jet) Kit MM ONE (12:45)
[2017-12-17] MEDS ORDERED: Succinylcholine 200 mg/10 ml Inj IV ONE (12:45)
[2017-12-17] MEDS ORDERED: Rocuronium 10 mg/ml (5 ml) ONE (12:46)
--- NOTE | 2017-12-17 12:54 | CP.PCM.PN ---
Subjective - Date & Time of Evaluation Date of Evaluation: 12/16/17 Time of Evaluation: 12:57 - Subjective Subjective: i d note patient transfered to ICU last night c temp of 102,wbc is 18.5 now going to O.R. for drainage continue same antiobiotic coverage no new cultures as yet post op discussed c will order echocardiogram Objective - Vital Signs/Intake and Output Vital Signs (last 24 hours): Temp Pulse Resp BP Pulse Ox 99.6 F 103 H 18 101/56 L 99 12/17/17 12:00 12/17/17 12:00 12/17/17 12:00 12/17/17 12:00 12/17/17 12:00 Intake and Output: 12/17/17 12/17/17 06:59 18:59 Intake Total 2600 634 Output Total 1250 660 Balance 1350 -26 - Medications Medications: Current Medications Acetaminophen (Tylenol 650 Mg Supp) 650 mg [place] Q6 PRN PRN Reason: Fever >100.4 F Last Admin: 12/17/17 09:00 Dose: 650 mg Enoxaparin Sodium (Lovenox) 40 mg SC DAILY DENIS PRN Reason: Protocol Hydromorphone HCl (Dilaudid) 0.5 mg IVP Q4 PRN PRN Reason: Pain, severe (8-10) Last Admin: 12/17/17 07:47 Dose: 0.5 mg Tobramycin Sulfate 80 mg/ (Sodium Chloride) 102 mls @ 102 mls/hr IVPB Q12H [facility] Last Admin: 12/17/17 05:21 Dose: 102 mls/hr Vancomycin HCl 1 gm/ Sodium (Chloride) 250 mls @ 166.667 mls/hr IVPB Q12 DENIS PRN Reason: Protocol Last Admin: 12/17/17 08:28 Dose: 166.667 mls/hr Sodium Chloride (Sodium Chloride 0.9%) 1,000 mls @ 999 mls/hr IV .Q1H1M [facility] Stop: 12/17/17 18:20 Last Admin: 12/16/17 21:03 Dose: 999 mls/hr Sodium Chloride (Sodium Chloride 0.9%) 1,000 mls @ 150 mls/hr IV .Q6H40M [facility] Stop: 12/17/17 18:32 Last Admin: 12/17/17 08:29 Dose: 150 mls/hr Metronidazole (Flagyl 500mg/100ml Ns) 100 mls @ 100 mls/hr IVPB Q8@0500,1300, 2100 DENIS PRN Reason: Protocol Last Admin: 12/17/17 12:02 Dose: 100 mls/hr Ondansetron HCl (Zofran Odt) 4 mg PO Q8H PRN PRN Reason: Nausea/Vomiting - Labs Labs: 12/17/17 05:15 12/17/17 05:15 PT 13.6 Seconds (9.8-13.1) H 12/16/17 15:10 INR 1.2 (0.9-1.2) 12/16/17 15:10 APTT 35.1 Seconds (25.6-37.1) 12/15/17 20:42
[2017-12-17] MEDS ORDERED: Sodium Chloride 0.9% 1,000 ML IV ONE (13:05)
[2017-12-17] MEDS ORDERED: Lidocaine 2% Inj (20ml) IJ ONE (13:25)
[2017-12-17] MEDS ORDERED: Oxycodone/Acetaminophen 5/325 mg Tab PO PRN (14:24)
--- NOTE | 2017-12-17 14:27 | PCM.SURG1 ---
Surgeon's Initial Post Op Note - Surgeon's Notes Surgeon: Dr. Mcgraw Church Warden: Jada Schwarz PHY2 Type of Anesthesia: General Endo, Local Pre-Operative Diagnosis: Pelvic abscess Operative Findings: Pelvic abscess Post-Operative Diagnosis: Pelvic abscess Operation Performed: laparoscopic drainage of pelvic abscess placement of drains Specimen/Specimens Removed: abscess Estimated Blood Loss: EBL {In ML}: 20 Blood Products Given: N/A Drains Used: Valdo Post-Op Condition: Good Date of Surgery/Procedure: 12/17/17 Time of Surgery/Procedure: 14:27
[2017-12-17] MEDS ORDERED: HYDROmorphone 0.5 mg/0.5 ml ISec IVP PRN (14:30)
--- NOTE | 2017-12-17 23:16 | PN ---
CRITICAL CARE PROGRESS NOTE DATE: 12/17/2017 LOCATION: The patient in ICU, bed 421. TIME SPENT: 35 minutes. SUBJECTIVE: The patient is seen and evaluated at the bedside. Past medical, surgical, and social history reviewed. A 37-year-old female with past medical history significant for ovarian abscess, status post robotic laparoscopic surgery for ovarian abscess, cystectomy, appendectomy and endometriosis removal last Sunday, admitted on 12/16/2017 with fever, chills, abdominal pain, noted to have recurrent abscess, underwent laparoscopy today with washout of the abscess, extubated, remains alert and awake, and follows commands appropriate. Complaining of dry mouth, also complaining of abdominal pain, more so at the site of insertion. Denies nausea or vomiting. No fever or chills noted. OBJECTIVE: CURRENT VITAL SIGNS: T-max 100.6, heart rate 103, blood pressure 101/56, and saturation 100%. Intake 2600 and output 1250, positive balance 1350. HEAD, EYES, EARS, NOSE AND THROAT: Pupils are reactive. Conjunctivae pink. Mouth dry. CHEST: Bilateral breath sounds clear to auscultation. Reduced inspiratory effort. HEART: Rhythm regular. S1 and S2 normal. No audible murmur. ABDOMEN: Bowel sounds present, but diminished, slightly distended and tender. EXTREMITIES: No edema. NEUROLOGIC: Nonfocal. SKIN: Without any rash. CURRENT MEDICATIONS: Vancomycin 1 g IV every 12 hours, tobramycin 80 mg IV every 12 hours, Flagyl 500 mg IV every 8 hours, Tylenol 650 every 6 hours p.r.n. for fever more than 100.4, Lovenox 40 subcutaneously daily, Toradol 30 mg IV every 6 hours p.r.n. morphine sulfate 4 mg IV push every 4 hours p.r.n. for breakthrough pain, Percocet 5/325 mg 2 tablets every 4 hours p.r.n., and normal saline at 100 mL/hour. LABORATORY DATA: WBC 18.5, hemoglobin 9.4, hematocrit 28.4, platelet count 278, neutrophils 87.7, lymphocytes 3, and monocytes 8.1. PT 13.6 and INR 1.2. SMA-7; sodium 135, potassium 4.7, chloride 101, CO2 of 27, blood urea nitrogen 12, creatinine 0.6, calcium 8.8, and random glucose 108. AST 51, ALT 44, alkaline phosphatase 121, total protein 6.4, albumin 3, and lipase 66. Urinalysis negative. Microbiology; blood culture no growth reported. Abdominal fluid Gram-stain culture report pending. Chest x-ray, pneumoperitoneum, no infiltrate or effusion. Abdominal CT, complex pelvic free fluid highly suspicious for abscess, pneumoperitoneum, unchanged small bilateral pleural effusion with bibasilar atelectasis or infiltrate, mild intrahepatic pneumobilia. IMPRESSION AND PLAN: 1. Neurologic: Alert and oriented to name, place, and time. 2. Pulmonary: Postoperative atelectasis. Continue incentive spirometry. 3. Cardiac: Hypotension resolved secondary to hypovolemia. Continue current IV hydration with normal saline at 100 mL/hour. 4. Infectious disease: Sepsis secondary to possible pelvic abscess, status post re-exploration and intra-abdominal washout. Followup for Gram-stain and culture of the intra-abdominal fluid sent to lab. Continue on vancomycin, tobramycin, and Flagyl. ALLERGY TO PENICILLIN AND SULFA. 5. Hematology: Leukocytosis secondary to intra-abdominal abscess. 6. Endocrine: No acute issues noted. Continue analgesics as needed to reduce abdominal discomfort on DVT and GI prophylaxis. Rancho Bell MD
[2017-12-18] MEDS: Sodium Chloride 0.9% 1,000 ML IV SCH (01:00)
[2017-12-18] MEDS: Oxycodone/Acetaminophen 5/325 mg Tab PO PRN ×3 (01:20→23:52)
[2017-12-18] MEDS: metroNIDAZOLE 500mg/100ml NS 100 ML IVPB SCH ×3 (05:10→20:54)
[2017-12-18 06:55] LABS: HEMOGLOBIN 9.3 g/dL (12.0-16.0); MEAN CELL VOLUME 85.5 fl (81.0-99.0); MEAN CORPUSCULAR HEMOGLOBIN 28.2 pg (27.0-31.0); RBC 3.28 Mil/uL (3.80-5.20); RED CELL DISTRIBUTION WIDTH 15.2 % (11.5-14.5); WHITE BLOOD COUNT 14.6 K/uL (4.8-10.8)
[2017-12-18 07:00] LABS: BLOOD UREA NITROGEN 5 mg/dl (7-17); CALCIUM 8.2 mg/dL (8.4-10.2); GFR AFRICAN-AMERICAN > 60; GFR NON-AFRICAN AMERICAN > 60
--- NOTE | 2017-12-18 11:01 | PN ---
DATE: 12/18/2017 CRITICAL CARE PROGRESS NOTE LOCATION: The patient in ICU, bed 421. TIME SPENT: 35 minutes. SUBJECTIVE: The patient is seen and evaluated at the bedside. Case was discussed in multidisciplinary ICU rounds in the morning. Past medical, surgical, family, and social history noted. A 37-year-old female with history significant for ovarian abscess, status post robotic laparoscopic surgery for ovarian abscess, cystectomy, appendectomy, and endometriosis removal. Admitted with fever, chills, abdominal pain, sepsis noted with recurrent collection in the status post laparoscopic surgery and irrigation with abdominal washout. Overnight temperature spikes reduced. Telemetry sinus rhythm, normotensive. This morning, sitting at the side of the bed, tangling her legs, complaining of incisional pain but less than yesterday. Has not had a bowel movement. No plan is yet, started on regular feeding, tolerating well. No nausea or vomiting. OBJECTIVE: VITAL SIGNS: T-max 100.6, heart rate 81 and regular, blood pressure 101/60, mean arterial pressure 73, respiratory rate 15, saturation 100% on room air. INTAKE AND OUTPUT: Intake 3214, output 3080. Positive balance 134. Weight 133 pounds. HEENT: Pupils are reactive. Conjunctivae pink. Sclerae white. NECK: Supple. Trachea central. CHEST: Bilateral breath sounds. Clear to auscultation. HEART: Rhythm regular. S1 and S2 normal. No audible murmur. ABDOMEN: Mildly distended, mild tenderness. Incision site clean without drainage. EXTREMITIES: Trace edema. NEUROLOGIC: Nonfocal. CURRENT MEDICATIONS: Vancomycin 1 g IV every 12 hours, tobramycin 80 mg IV every 12 hours, Flagyl 500 mg IV every 8 hours, Tylenol 650 every 6 hours p.r.n. for temperature more than 100.4, Toradol 30 mg IV every 6 hours p.r.n. for moderate pain, morphine sulfate 4 mg IV every 4 hours p.r.n. for breakthrough pain, Zofran 4 mg p.o. every 8 hours p.r.n. for nausea and vomiting, Lovenox 40 subcu daily, Percocet 5/325 mg 2 tablets every 4 hours p.r.n. for moderate pain, and Percocet 5/325 mg 1 tablet every 4 hours for mild pain. LABORATORY DATA: WBC 14.6, hemoglobin 9.3, hematocrit 28.1, and platelet count 352,000. PT 13.6 and INR 1.2. ABG, pH of 7.4, pCO2 of 47, and lactate of 1.1. Sodium 135, potassium 4.2, chloride 101, CO2 24, BUN 5, creatinine of 0.5, random glucose 96, calcium 8.2, AST 51, ALT 44, alkaline phosphatase 121, and total protein 6.4. Microbiology, blood culture no growth reported. Echocardiogram report pending. IMPRESSION AND PLAN: 1. Neuro: Alert and oriented to name, place and time. 2. Pulmonary: Postoperative atelectasis, improving. Continue incentive spirometry. 3. Cardiac: Hypertension resolved secondary to hypovolemia, continue current IV hydration. 4. Infectious disease: Sepsis secondary to pelvic abscess, status post re-exploration and intra-abdominal washout. Continue vancomycin, tobramycin, and Flagyl. Follow gram stain and culture from the intra-abdominal fluid. The patient is ALLERGIC TO PENICILLIN AND SULFA. 5. Hematology: Leukocytosis secondary to intra-abdominal abscess trending down. Hemoglobin and hematocrit stable. 6. Endocrine: No acute issues. 7. Continue analgesics as needed to reduce postoperative pain. 8. Continue DVT prophylaxis on Lovenox 40 subcu daily. Rancho Bell MD
--- NOTE | 2017-12-18 11:14 | CP.PCM.PN ---
Subjective - Date & Time of Evaluation Date of Evaluation: 12/18/17 Time of Evaluation: 11:10 - Subjective Subjective: Surgery Pt seen and examined. Pt underwent surgery yesterday. Tolerated it well. Continued fever 100.6 at midnight. Denies nausea, diarrhea, CP, SOB. + amb. + void. Tolerating diet. Objective - Vital Signs/Intake and Output Vital Signs (last 24 hours): Temp Pulse Resp BP Pulse Ox 98.2 F 86 19 99/63 L 100 12/18/17 08:00 12/18/17 10:00 12/18/17 10:00 12/18/17 10:00 12/18/17 10:00 Intake and Output: 12/18/17 12/18/17 06:59 18:59 Intake Total 1400 1050 Output Total 2120 Balance -720 1050 - Medications Medications: Current Medications Acetaminophen (Tylenol 325mg Tab) 650 mg PO Q6 PRN PRN Reason: Fever >100.4 F Last Admin: 12/17/17 23:21 Dose: 650 mg Enoxaparin Sodium (Lovenox) 40 mg SC DAILY DENIS PRN Reason: Protocol Tobramycin Sulfate 80 mg/ (Sodium Chloride) 102 mls @ 102 mls/hr IVPB Q12H [facility] Last Admin: 12/18/17 05:55 Dose: 102 mls/hr Vancomycin HCl 1 gm/ Sodium (Chloride) 250 mls @ 166.667 mls/hr IVPB Q12 DENIS PRN Reason: Protocol Last Admin: 12/18/17 10:09 Dose: 166.667 mls/hr Metronidazole (Flagyl 500mg/100ml Ns) 100 mls @ 100 mls/hr IVPB Q8@0500,1300, 2100 DENIS PRN Reason: Protocol Last Admin: 12/18/17 05:10 Dose: 100 mls/hr Sodium Chloride (Sodium Chloride 0.9%) 1,000 mls @ 100 mls/hr IV .Q10H [facility] Last Admin: 12/18/17 01:00 Dose: 100 mls/hr Ketorolac Tromethamine (Toradol) 30 mg IVP Q6 PRN PRN Reason: Pain, moderate (4-7) Last Admin: 12/18/17 11:05 Dose: 30 mg Morphine Sulfate (Morphine) 4 mg IVP Q4 PRN PRN Reason: breakthough pain Last Admin: 12/17/17 19:53 Dose: 4 mg Ondansetron HCl (Zofran Odt) 4 mg PO Q8H PRN PRN Reason: Nausea/Vomiting Oxycodone/Acetaminophen (Percocet 5/325 Mg Tab) 2 tab PO Q4 PRN PRN Reason: Pain, moderate (4-7) Stop: 12/20/17 14:25 Oxycodone/Acetaminophen (Percocet 5/325 Mg Tab) 1 tab PO Q4 PRN PRN Reason: Pain, Mild (1-3) Stop: 12/21/17 00:34 Last Admin: 12/18/17 01:20 Dose: 1 tab - Labs Labs: 12/18/17 06:37 12/18/17 06:37 PT 13.6 Seconds (9.8-13.1) H 12/16/17 15:10 INR 1.2 (0.9-1.2) 12/16/17 15:10 APTT 35.1 Seconds (25.6-37.1) 12/15/17 20:42 - Constitutional Appears: No Acute Distress - Head Exam Head Exam: ATRAUMATIC, NORMAL INSPECTION, NORMOCEPHALIC - Eye Exam Eye Exam: EOMI, Normal appearance, PERRL Pupil Exam: NORMAL ACCOMODATION, PERRL - ENT Exam ENT Exam: Mucous Membranes Moist, Normal Exam - Neck Exam Neck Exam: Full ROM, Normal Inspection. absent: Lymphadenopathy - Respiratory Exam Respiratory Exam: Clear to Ausculation Bilateral, NORMAL BREATHING PATTERN - Cardiovascular Exam Cardiovascular Exam: REGULAR RHYTHM, +S1, +S2. absent: Murmur - GI/Abdominal Exam GI & Abdominal Exam: Soft, Tenderness, Normal Bowel Sounds. absent: Distended, Firm, Guarding, Rigid Additional comments: Drains x3 : SS fluids. 400cc total - Exam Exam: NORMAL INSPECTION - Extremities Exam Extremities Exam: Full ROM, Normal Capillary Refill, Normal Inspection. absent : Joint Swelling, Pedal Edema - Back Exam Back Exam: NORMAL INSPECTION - Neurological Exam Neurological Exam: Alert, Awake, CN II-XII Intact, Normal Gait, Oriented x3 - Psychiatric Exam Psychiatric exam: Normal Affect, Normal Mood - Skin Skin Exam: Dry, Intact, Normal Color, Warm Assessment and Plan - Assessment and Plan (Free Text) Assessment: POD 1 s/p lap absecess drainage: Post op fever likely 2/2 intra-abd abscess Febrile WBC 14.6 today -ABX per ID -Drain output -Intake and output -Ambulate -IS DW Dr. Mcgraw
--- NOTE | 2017-12-18 13:13 | CARD ---
APPROVED REPORT EXAM: Two-dimensional and M-mode echocardiogram with Doppler and color Doppler. Other Information Quality : GoodRhythm : NSR INDICATION Infection: 2D DIMENSIONS IVSd0.91 (0.7-1.1cm)LVDd4.60 (3.9-5.9cm) LVOT Diameter2.09 (1.8-2.4cm)PWd0.83 (0.7-1.1cm) IVSs1.31 (0.8-1.2cm)LVDs2.92 (2.5-4.0cm) FS (%) 36.5 %PWs1.34 (0.8-1.2cm) M-Mode DIMENSIONS Left Atrium (MM)3.61 (2.5-4.0cm)IVSd0.94 (0.7-1.1cm) Aortic Root2.54 (2.2-3.7cm)LVDd4.88 (4.0-5.6cm) Aortic Cusp Exc.1.82 (1.5-2.0cm)PWd0.83 (0.7-1.1cm) IVSs1.21 cmFS (%) 41 % LVDs2.90 (2.0-3.8cm)PWs1.43 cm Mitral Valve E/A ratio0.0 TDI E/Lateral E'0.0E/Medial E'0.0 LEFT VENTRICLE The left ventricle is normal size. There is normal left ventricular wall thickness. Left ventricle systolic function is normal. The Ejection Fraction is 65-70%. There is normal LV segmental wall motion. The left ventricular diastolic function is normal. RIGHT VENTRICLE The right ventricle is normal size. There is normal right ventricular wall thickness. The right ventricular systolic function is normal. ATRIA The left atrium size is normal. The right atrium size is normal. AORTIC VALVE The aortic valve is normal in structure. No aortic regurgitation is present. There is no aortic valvular stenosis. There is no aortic valvular vegetation. MITRAL VALVE The mitral valve is normal in structure No vegetations seen on MV. There is no evidence of mitral valve prolapse. There is no mitral valve stenosis. There is no mitral valve regurgitation noted. TRICUSPID VALVE The tricuspid valve is normal in structure. There is no tricuspid valve regurgitation noted. There is no tricuspid valve vegetation. PULMONIC VALVE The pulmonary valve is normal in structure. There is no pulmonic valvular regurgitation. GREAT VESSELS The aortic root is normal in size. The IVC is normal in size and collapses >50% with inspiration. PERICARDIAL EFFUSION The pericardium appears normal. <Conclusion> The left ventricle is normal size. There is normal LV segmental wall motion. Left ventricle systolic function is normal. The Ejection Fraction is 65-70%. The left ventricular diastolic function is normal. No vegetations seen on this TTE.
[2017-12-18] MEDS: Lidocaine/Prilocaine CREAM 5GM TP SCH (18:14)
[2017-12-18] MEDS: Enoxaparin 40 mg Syringe SC SCH (18:23)
--- NOTE | 2017-12-18 18:47 | CP.PCM.PN ---
Subjective - Date & Time of Evaluation Date of Evaluation: 12/18/17 Time of Evaluation: 18:47 - Subjective Subjective: I D NOTE TEMP:100 WBC:14.9 CULTURES ARE NEG SO FAR CONTINUE VANCOMYCIN/FLAGYL/TOBRAMYCIN LUNGS :DECREASED BS AT RIGHT BASE HEART:RSR DRAINS 1.SEROSANGUINOUS FLUID 2,MILDLY MURKY NO PAIN ON URINATION MAY NEED PICC Objective - Vital Signs/Intake and Output Vital Signs (last 24 hours): Temp Pulse Resp BP Pulse Ox 98.8 F 79 17 107/61 100 12/18/17 16:00 12/18/17 18:00 12/18/17 18:00 12/18/17 18:00 12/18/17 18:00 Intake and Output: 12/18/17 12/18/17 06:59 18:59 Intake Total 1400 1890 Output Total 2120 265 Balance -720 1625 - Medications Medications: Current Medications Acetaminophen (Tylenol 325mg Tab) 650 mg PO Q6 PRN PRN Reason: Fever >100.4 F Last Admin: 12/17/17 23:21 Dose: 650 mg Enoxaparin Sodium (Lovenox) 40 mg SC DAILY DENIS PRN Reason: Protocol Last Admin: 12/18/17 18:23 Dose: 40 mg Tobramycin Sulfate 80 mg/ (Sodium Chloride) 102 mls @ 102 mls/hr IVPB Q12H [facility] Last Admin: 12/18/17 05:55 Dose: 102 mls/hr Vancomycin HCl 1 gm/ Sodium (Chloride) 250 mls @ 166.667 mls/hr IVPB Q12 DENIS PRN Reason: Protocol Last Admin: 12/18/17 10:09 Dose: 166.667 mls/hr Metronidazole (Flagyl 500mg/100ml Ns) 100 mls @ 100 mls/hr IVPB Q8@0500,1300, 2100 DENIS PRN Reason: Protocol Last Admin: 12/18/17 12:59 Dose: 100 mls/hr Ibuprofen (Motrin Tab) 600 mg PO Q6 PRN PRN Reason: Pain, severe (8-10) Last Admin: 12/18/17 14:18 Dose: 600 mg Lidocaine/Prilocaine (Lidocaine/Prilocaine 2.5%-2.5%) 1 applic TP DAILY [facility] Last Admin: 12/18/17 18:14 Dose: 1 applic Morphine Sulfate (Morphine) 4 mg IVP Q4 PRN PRN Reason: breakthough pain Last Admin: 12/17/17 19:53 Dose: 4 mg Ondansetron HCl (Zofran Odt) 4 mg PO Q8H PRN PRN Reason: Nausea/Vomiting Last Admin: 12/18/17 13:00 Dose: 4 mg Oxycodone/Acetaminophen (Percocet 5/325 Mg Tab) 2 tab PO Q4 PRN PRN Reason: Pain, moderate (4-7) Stop: 12/20/17 14:25 Oxycodone/Acetaminophen (Percocet 5/325 Mg Tab) 1 tab PO Q4 PRN PRN Reason: Pain, Mild (1-3) Stop: 12/21/17 00:34 Last Admin: 12/18/17 18:31 Dose: 1 tab - Labs Labs: 12/18/17 06:37 12/18/17 06:37 PT 13.6 Seconds (9.8-13.1) H 12/16/17 15:10 INR 1.2 (0.9-1.2) 12/16/17 15:10 APTT 35.1 Seconds (25.6-37.1) 12/15/17 20:42
[2017-12-19] MEDS: metroNIDAZOLE 500mg/100ml NS 100 ML IVPB SCH ×3 (04:24→20:56)
[2017-12-19 05:39] LABS: HEMOGLOBIN 8.9 g/dL (12.0-16.0); MEAN CELL VOLUME 84.4 fl (81.0-99.0); MEAN CORPUSCULAR HEMOGLOBIN 28.1 pg (27.0-31.0); MEAN CORPUSCULAR HGB CONC 33.3 g/dL (33.0-37.0); RBC 3.17 Mil/uL (3.80-5.20); RED CELL DISTRIBUTION WIDTH 15.3 % (11.5-14.5); WHITE BLOOD COUNT 8.6 K/uL (4.8-10.8)
[2017-12-19 05:49] LABS: BLOOD UREA NITROGEN 6 mg/dl (7-17); CALCIUM 8.6 mg/dL (8.4-10.2); GFR AFRICAN-AMERICAN > 60; GFR NON-AFRICAN AMERICAN > 60
[2017-12-19] MEDS: Lidocaine/Prilocaine CREAM 5GM TP SCH (08:46)
[2017-12-19] MEDS: Enoxaparin 40 mg Syringe SC SCH (08:56)
--- NOTE | 2017-12-19 11:27 | CP.PCM.PN ---
Subjective - Date & Time of Evaluation Date of Evaluation: 12/19/17 Time of Evaluation: 10:30 - Subjective Subjective: General Surgery Pt Seen and examined. Afebrile. No acute events overnight. Pain controlled with meds. C/O some bloating/gas pains but overall better. No BM yet. Ambulating. Tolerating Diet Objective - Vital Signs/Intake and Output Vital Signs (last 24 hours): Temp Pulse Resp BP Pulse Ox 97.8 F 72 16 96/57 L 100 12/19/17 08:00 12/19/17 06:00 12/19/17 06:00 12/19/17 06:00 12/19/17 06:00 Intake and Output: 12/19/17 12/19/17 06:59 18:59 Intake Total 1310 Output Total 475 Balance 835 - Medications Medications: Current Medications Acetaminophen (Tylenol 325mg Tab) 650 mg PO Q6 PRN PRN Reason: Fever >100.4 F Last Admin: 12/17/17 23:21 Dose: 650 mg Enoxaparin Sodium (Lovenox) 40 mg SC DAILY DENIS PRN Reason: Protocol Last Admin: 12/19/17 08:56 Dose: 40 mg Tobramycin Sulfate 80 mg/ (Sodium Chloride) 102 mls @ 102 mls/hr IVPB Q12H DENIS Last Admin: 12/19/17 05:21 Dose: 102 mls/hr Vancomycin HCl 1 gm/ Sodium (Chloride) 250 mls @ 166.667 mls/hr IVPB Q12 DENIS PRN Reason: Protocol Last Admin: 12/19/17 08:50 Dose: 166.667 mls/hr Metronidazole (Flagyl 500mg/100ml Ns) 100 mls @ 100 mls/hr IVPB Q8@0500,1300, 2100 DENIS PRN Reason: Protocol Last Admin: 12/19/17 04:24 Dose: 100 mls/hr Ibuprofen (Motrin Tab) 600 mg PO Q6 PRN PRN Reason: Pain, severe (8-10) Last Admin: 12/19/17 09:28 Dose: 600 mg Morphine Sulfate (Morphine) 4 mg IVP Q4 PRN PRN Reason: breakthough pain Last Admin: 12/19/17 05:21 Dose: 4 mg Ondansetron HCl (Zofran Odt) 4 mg PO Q8H PRN PRN Reason: Nausea/Vomiting Last Admin: 12/19/17 05:20 Dose: 4 mg Oxycodone/Acetaminophen (Percocet 5/325 Mg Tab) 2 tab PO Q4 PRN PRN Reason: Pain, moderate (4-7) Stop: 12/20/17 14:25 Oxycodone/Acetaminophen (Percocet 5/325 Mg Tab) 1 tab PO Q4 PRN PRN Reason: Pain, Mild (1-3) Stop: 12/21/17 00:34 Last Admin: 12/18/17 23:52 Dose: 1 tab - Labs Labs: 12/19/17 04:45 12/19/17 04:45 PT 13.6 Seconds (9.8-13.1) H 12/16/17 15:10 INR 1.2 (0.9-1.2) 12/16/17 15:10 APTT 35.1 Seconds (25.6-37.1) 12/15/17 20:42 - Constitutional Appears: Non-toxic, No Acute Distress - Head Exam Head Exam: ATRAUMATIC, NORMOCEPHALIC - Eye Exam Eye Exam: EOMI. absent: Scleral icterus - ENT Exam ENT Exam: Mucous Membranes Moist - Respiratory Exam Respiratory Exam: NORMAL BREATHING PATTERN. absent: Respiratory Distress - Cardiovascular Exam Cardiovascular Exam: RRR, +S1, +S2 - GI/Abdominal Exam GI & Abdominal Exam: Distended (mild), Soft, Tenderness (mild at incision sites) . absent: Firm, Rigid Additional comments: dressinggs C/D/I - Back Exam Back Exam: absent: CVA tenderness (L), CVA tenderness (R) - Neurological Exam Neurological Exam: Alert, Awake, Oriented x3 - Skin Skin Exam: Dry, Warm Assessment and Plan - Assessment and Plan (Free Text) Assessment: 37F POD 2 s/p lap abscess drainage Plan: WBC 8.6 today Drain outputs: Upper 520cc/24hr serosang, Lower 220cc/24hr serous -ABX per ID -Intake and output -Ambulate -IS -Pain control -Ok for transfer to a private room DW Dr. Mariluz Delarosa PGY4
[2017-12-19] MEDS ORDERED: Oxycodone/Acetaminophen 5/325 mg Tab PO PRN ×2 (13:16)
--- NOTE | 2017-12-19 16:39 | CP.PCM.PN ---
Subjective - Date & Time of Evaluation Date of Evaluation: 12/19/17 Time of Evaluation: 16:40 - Subjective Subjective: I D NOTE IMPROVING,AFEBRILE ,WBC:IS DOWN TO 8.6 SURGICAL CULTURE SHOWS GRAM NEGATIVE RODS(HEAVY GROWTH) AWAITING SENSITIVITY STILL HAVING DRAINAGE LUNGS:CLEAR ECHOCARDIOGRAM :NO VEGETATIONS WNL NO CHANGE IN ANTIBIOTIC COVERAGE CONSIDER STARTING PROBIOTICS Objective - Vital Signs/Intake and Output Vital Signs (last 24 hours): Temp Pulse Resp BP Pulse Ox 97.6 F 70 12 107/83 100 12/19/17 12:00 12/19/17 12:00 12/19/17 12:00 12/19/17 10:00 12/19/17 12:00 Intake and Output: 12/19/17 12/19/17 06:59 18:59 Intake Total 1310 940 Output Total 475 410 Balance 835 530 - Medications Medications: Current Medications Acetaminophen (Tylenol 325mg Tab) 650 mg PO Q6 PRN PRN Reason: Fever >100.4 F Enoxaparin Sodium (Lovenox) 40 mg SC DAILY DENIS PRN Reason: Protocol Metronidazole (Flagyl 500mg/100ml Ns) 100 mls @ 100 mls/hr IVPB Q8@0500,1300, 2100 DENIS PRN Reason: Protocol Tobramycin Sulfate 80 mg/ (Sodium Chloride) 102 mls @ 102 mls/hr IVPB Q12H DENIS PRN Reason: Protocol Vancomycin HCl 1 gm/ Sodium (Chloride) 250 mls @ 166.667 mls/hr IVPB Q12 DENIS PRN Reason: Protocol Ibuprofen (Motrin Tab) 600 mg PO Q6 PRN PRN Reason: Pain, severe (8-10) Last Admin: 12/19/17 15:23 Dose: 600 mg Morphine Sulfate (Morphine) 4 mg IVP Q4 PRN PRN Reason: breakthough pain Ondansetron HCl (Zofran Odt) 4 mg PO Q8H PRN PRN Reason: Nausea/Vomiting Last Admin: 12/19/17 14:29 Dose: 4 mg Oxycodone/Acetaminophen (Percocet 5/325 Mg Tab) 2 tab PO Q4 PRN PRN Reason: Pain, moderate (4-7) Stop: 12/20/17 14:25 Oxycodone/Acetaminophen (Percocet 5/325 Mg Tab) 1 tab PO Q4 PRN PRN Reason: Pain, Mild (1-3) Stop: 12/21/17 00:34 - Labs Labs: 12/19/17 04:45 12/19/17 04:45 PT 13.6 Seconds (9.8-13.1) H 12/16/17 15:10 INR 1.2 (0.9-1.2) 12/16/17 15:10 APTT 35.1 Seconds (25.6-37.1) 12/15/17 20:42
[2017-12-20] MEDS: metroNIDAZOLE 500mg/100ml NS 100 ML IVPB SCH ×3 (05:06→20:35)
[2017-12-20 06:36] LABS: ALB/GLOB RATIO 0.8 (1.0-2.1); ALBUMIN 2.6 g/dL (3.5-5.0); ALT/SGPT 42 U/L (9-52); AST/SGOT 25 U/L (14-36); BLOOD UREA NITROGEN 3 mg/dl (7-17); CALCIUM 8.6 mg/dL (8.4-10.2); GFR AFRICAN-AMERICAN > 60; GFR NON-AFRICAN AMERICAN > 60
[2017-12-20 07:49] LABS: MEAN CELL VOLUME 84.2 fl (81.0-99.0); MEAN CORPUSCULAR HEMOGLOBIN 27.9 pg (27.0-31.0); MEAN CORPUSCULAR HGB CONC 33.2 g/dL (33.0-37.0); RBC 3.23 Mil/uL (3.80-5.20); RED CELL DISTRIBUTION WIDTH 14.9 % (11.5-14.5); WHITE BLOOD COUNT 7.7 K/uL (4.8-10.8)
--- NOTE | 2017-12-20 08:06 | CP.PCM.PN ---
Subjective - Date & Time of Evaluation Date of Evaluation: 12/20/17 Time of Evaluation: 08:04 - Subjective Subjective: Surgery Pt seen and examined. Transfered to med surg. No acute events. denies fever, nausea, diarrhea, CP,SOB. Dressing changed. Objective - Vital Signs/Intake and Output Vital Signs (last 24 hours): Temp Pulse Resp BP Pulse Ox 98.1 F 79 18 97/56 L 98 12/19/17 23:31 12/19/17 23:31 12/19/17 23:31 12/19/17 23:31 12/19/17 23:31 - Medications Medications: Current Medications Acetaminophen (Tylenol 325mg Tab) 650 mg PO Q6 PRN PRN Reason: Fever >100.4 F Enoxaparin Sodium (Lovenox) 40 mg SC DAILY DENIS PRN Reason: Protocol Metronidazole (Flagyl 500mg/100ml Ns) 100 mls @ 100 mls/hr IVPB Q8@0500,1300, 2100 DENIS PRN Reason: Protocol Last Admin: 12/20/17 05:06 Dose: 100 mls/hr Tobramycin Sulfate 80 mg/ (Sodium Chloride) 102 mls @ 102 mls/hr IVPB Q12H DENIS PRN Reason: Protocol Last Admin: 12/20/17 06:20 Dose: 102 mls/hr Vancomycin HCl 1 gm/ Sodium (Chloride) 250 mls @ 166.667 mls/hr IVPB Q12 DENIS PRN Reason: Protocol Last Admin: 12/19/17 22:02 Dose: 166.667 mls/hr Ibuprofen (Motrin Tab) 600 mg PO Q6 PRN PRN Reason: Pain, severe (8-10) Last Admin: 12/20/17 02:26 Dose: 600 mg Lactobacillus Acidophilus (Bacid Acidophilus) 1 cap PO BID DENIS Morphine Sulfate (Morphine) 4 mg IVP Q4 PRN PRN Reason: breakthough pain Ondansetron HCl (Zofran Odt) 4 mg PO Q4H PRN PRN Reason: Nausea/Vomiting Last Admin: 12/20/17 05:05 Dose: 4 mg Oxycodone/Acetaminophen (Percocet 5/325 Mg Tab) 2 tab PO Q4 PRN PRN Reason: Pain, moderate (4-7) Stop: 12/20/17 14:25 Oxycodone/Acetaminophen (Percocet 5/325 Mg Tab) 1 tab PO Q4 PRN PRN Reason: Pain, Mild (1-3) Stop: 12/21/17 00:34 Last Admin: 12/19/17 22:07 Dose: 1 tab - Labs Labs: 12/20/17 07:45 12/20/17 06:05 PT 13.6 Seconds (9.8-13.1) H 12/16/17 15:10 INR 1.2 (0.9-1.2) 12/16/17 15:10 APTT 35.1 Seconds (25.6-37.1) 12/15/17 20:42 - Constitutional Appears: No Acute Distress - Head Exam Head Exam: ATRAUMATIC, NORMAL INSPECTION, NORMOCEPHALIC - Eye Exam Eye Exam: EOMI, Normal appearance, PERRL Pupil Exam: NORMAL ACCOMODATION, PERRL - ENT Exam ENT Exam: Mucous Membranes Moist, Normal Exam - Neck Exam Neck Exam: Full ROM, Normal Inspection. absent: Lymphadenopathy - Respiratory Exam Respiratory Exam: Clear to Ausculation Bilateral, NORMAL BREATHING PATTERN - Cardiovascular Exam Cardiovascular Exam: REGULAR RHYTHM, +S1, +S2. absent: Murmur - GI/Abdominal Exam GI & Abdominal Exam: Soft, Tenderness, Normal Bowel Sounds. absent: Distended, Firm, Rigid Additional comments: Drains in place. 400cc serous output. - Extremities Exam Extremities Exam: Full ROM, Normal Capillary Refill, Normal Inspection. absent : Joint Swelling, Pedal Edema - Back Exam Back Exam: NORMAL INSPECTION - Neurological Exam Neurological Exam: Alert, Awake, CN II-XII Intact, Normal Gait, Oriented x3 - Psychiatric Exam Psychiatric exam: Normal Affect, Normal Mood - Skin Skin Exam: Dry, Intact, Normal Color, Warm Assessment and Plan - Assessment and Plan (Free Text) Assessment: 37F POD 3 s/p lap abscess drainage Plan: No leukocytosis , Afebrile Drain outputs: Upper 400cc/24hr serosang, Lower 350cc/24hr serous -ABX per ID: Possible PO ABX recommendation. -Intake and output -Ambulate -IS -Pain control Will TING Mcgraw
[2017-12-20] MEDS ORDERED: Lidocaine/Prilocaine CREAM 5GM TP ONE (08:30)
[2017-12-20] MEDS: Lactobacillus Acidophilus 500 MU Cap PO SCH ×2 (08:53→17:06)
[2017-12-20] MEDS: Enoxaparin 40 mg Syringe SC SCH (09:20)
[2017-12-20] MEDS ORDERED: Oxycodone/Acetaminophen 5/325 mg Tab PO PRN (14:46)
--- NOTE | 2017-12-20 19:02 | CP.PCM.PN ---
Subjective - Date & Time of Evaluation Date of Evaluation: 12/20/17 Time of Evaluation: 18:52 - Subjective Subjective: I D NOTE DOING WELL ,HAS NAUSEA ,SO FAR RESPONDING TO ZOFRAN WBC:7.7 STILL C DRAINAGE :UPPER c 200 cc LOWER c 50 cc culture :E.Coli c harrell sensitivity no change in Rx will be away x 3 days COVERING IF NECESSARY CAN BE REACHED BY CELL PHONE [phone] Objective - Vital Signs/Intake and Output Vital Signs (last 24 hours): Temp Pulse Resp BP Pulse Ox 97.7 F 73 20 104/69 99 12/20/17 08:27 12/20/17 08:27 12/20/17 08:27 12/20/17 08:27 12/20/17 08:27 Intake and Output: 12/20/17 12/20/17 06:59 18:59 Output Total 250 Balance -250 - Medications Medications: Current Medications Acetaminophen (Tylenol 325mg Tab) 650 mg PO Q6 PRN PRN Reason: Fever >100.4 F Last Admin: 12/20/17 14:33 Dose: 650 mg Acetaminophen (Tylenol 325mg Tab) 650 mg PO Q4 PRN PRN Reason: Pain, Mild (1-3) Enoxaparin Sodium (Lovenox) 40 mg SC DAILY DENIS PRN Reason: Protocol Last Admin: 12/20/17 09:20 Dose: 40 mg Metronidazole (Flagyl 500mg/100ml Ns) 100 mls @ 100 mls/hr IVPB Q8@0500,1300, 2100 DENIS PRN Reason: Protocol Last Admin: 12/20/17 13:14 Dose: 100 mls/hr Tobramycin Sulfate 80 mg/ (Sodium Chloride) 102 mls @ 102 mls/hr IVPB Q12H DENIS PRN Reason: Protocol Last Admin: 12/20/17 17:47 Dose: 102 mls/hr Vancomycin HCl 1 gm/ Sodium (Chloride) 250 mls @ 166.667 mls/hr IVPB Q12 DENIS PRN Reason: Protocol Last Admin: 12/20/17 09:19 Dose: 166.667 mls/hr Ibuprofen (Motrin Tab) 600 mg PO Q6 PRN PRN Reason: Pain, severe (8-10) Last Admin: 12/20/17 15:42 Dose: 600 mg Lactobacillus Acidophilus (Bacid Acidophilus) 1 cap PO BID DENIS Last Admin: 12/20/17 17:06 Dose: 1 cap Morphine Sulfate (Morphine) 4 mg IVP Q4 PRN PRN Reason: breakthough pain Ondansetron HCl (Zofran Odt) 4 mg PO Q4H PRN PRN Reason: Nausea/Vomiting Last Admin: 12/20/17 18:26 Dose: 4 mg Oxycodone/Acetaminophen (Percocet 5/325 Mg Tab) 2 tab PO Q4 PRN PRN Reason: Pain, moderate (4-7) Stop: 12/23/17 14:47 - Labs Labs: 12/20/17 07:45 12/20/17 06:05 PT 13.6 Seconds (9.8-13.1) H 12/16/17 15:10 INR 1.2 (0.9-1.2) 12/16/17 15:10 APTT 35.1 Seconds (25.6-37.1) 12/15/17 20:42
[2017-12-20] MEDS ORDERED: Fluconazole 150 MG TAB PO PRN ×2 (20:26→20:52)
[2017-12-21] MEDS: metroNIDAZOLE 500mg/100ml NS 100 ML IVPB SCH ×3 (04:07→20:32)
--- NOTE | 2017-12-21 08:02 | CP.PCM.PN ---
Subjective - Date & Time of Evaluation Date of Evaluation: 12/21/17 Time of Evaluation: 08:00 - Subjective Subjective: Surgery Pt seen and examined. No acute events. Denies fevers, nausea, diarrhea, CP, SOB. + void + amb. TOlerating diet. Objective - Vital Signs/Intake and Output Vital Signs (last 24 hours): Temp Pulse Resp BP Pulse Ox 98.2 F 75 18 106/65 100 12/20/17 23:25 12/20/17 23:25 12/20/17 23:25 12/20/17 23:25 12/20/17 23:25 - Medications Medications: Current Medications Acetaminophen (Tylenol 325mg Tab) 650 mg PO Q6 PRN PRN Reason: Fever >100.4 F Last Admin: 12/20/17 14:33 Dose: 650 mg Acetaminophen (Tylenol 325mg Tab) 650 mg PO Q4 PRN PRN Reason: Pain, Mild (1-3) Last Admin: 12/20/17 20:08 Dose: 650 mg Enoxaparin Sodium (Lovenox) 40 mg SC DAILY DENIS PRN Reason: Protocol Last Admin: 12/20/17 09:20 Dose: 40 mg Fluconazole (Diflucan) 150 mg PO ONCE PRN; Protocol PRN Reason: fungal Metronidazole (Flagyl 500mg/100ml Ns) 100 mls @ 100 mls/hr IVPB Q8@0500,1300, 2100 DENIS PRN Reason: Protocol Last Admin: 12/21/17 04:07 Dose: 100 mls/hr Tobramycin Sulfate 80 mg/ (Sodium Chloride) 102 mls @ 102 mls/hr IVPB Q12H DENIS PRN Reason: Protocol Last Admin: 12/21/17 06:14 Dose: 102 mls/hr Vancomycin HCl 1 gm/ Sodium (Chloride) 250 mls @ 166.667 mls/hr IVPB Q12 DENIS PRN Reason: Protocol Last Admin: 12/20/17 20:59 Dose: 166.667 mls/hr Ibuprofen (Motrin Tab) 600 mg PO Q6 PRN PRN Reason: Pain, severe (8-10) Last Admin: 12/21/17 04:08 Dose: 600 mg Lactobacillus Acidophilus (Bacid Acidophilus) 1 cap PO BID DENIS Last Admin: 12/20/17 17:06 Dose: 1 cap Morphine Sulfate (Morphine) 4 mg IVP Q4 PRN PRN Reason: breakthough pain Nystatin (Nystop Topical Powder) 1 applic TOP TID DENIS Ondansetron HCl (Zofran Odt) 4 mg PO Q4H PRN PRN Reason: Nausea/Vomiting Last Admin: 12/20/17 18:26 Dose: 4 mg Oxycodone/Acetaminophen (Percocet 5/325 Mg Tab) 2 tab PO Q4 PRN PRN Reason: Pain, moderate (4-7) Stop: 12/23/17 14:47 - Labs Labs: 12/20/17 07:45 12/20/17 06:05 PT 13.6 Seconds (9.8-13.1) H 12/16/17 15:10 INR 1.2 (0.9-1.2) 12/16/17 15:10 APTT 35.1 Seconds (25.6-37.1) 12/15/17 20:42 - Constitutional Appears: No Acute Distress - Head Exam Head Exam: ATRAUMATIC, NORMAL INSPECTION, NORMOCEPHALIC - Eye Exam Eye Exam: EOMI, Normal appearance, PERRL Pupil Exam: NORMAL ACCOMODATION, PERRL - ENT Exam ENT Exam: Mucous Membranes Moist, Normal Exam - Neck Exam Neck Exam: Full ROM, Normal Inspection. absent: Lymphadenopathy - Respiratory Exam Respiratory Exam: Clear to Ausculation Bilateral, NORMAL BREATHING PATTERN - Cardiovascular Exam Cardiovascular Exam: REGULAR RHYTHM, +S1, +S2. absent: Murmur - GI/Abdominal Exam GI & Abdominal Exam: Soft, Tenderness, Normal Bowel Sounds. absent: Distended, Firm, Guarding, Rigid Additional comments: [address]: Serous fluids. 200/24 50/24hr - Exam Exam: NORMAL INSPECTION - Extremities Exam Extremities Exam: Full ROM, Normal Capillary Refill, Normal Inspection. absent : Joint Swelling, Pedal Edema - Back Exam Back Exam: NORMAL INSPECTION - Neurological Exam Neurological Exam: Alert, Awake, CN II-XII Intact, Normal Gait, Oriented x3 - Psychiatric Exam Psychiatric exam: Normal Affect, Normal Mood - Skin Skin Exam: Dry, Intact, Normal Color, Warm Assessment and Plan - Assessment and Plan (Free Text) Assessment: 37F POD 4 s/p lap abscess drainage Plan: Afebrile Drain outputs: Upper 50cc/24hr serous, Lower 200cc/24hr serous -ABX per ID: Possible PO ABX recommendation. -Intake and output -Ambulate -IS -Pain control Will DW Dr. Mcgraw
[2017-12-21] MEDS: Lactobacillus Acidophilus 500 MU Cap PO SCH ×2 (10:21→18:28)
[2017-12-21] MEDS: Enoxaparin 40 mg Syringe SC SCH (10:22)
[2017-12-22] MEDS: metroNIDAZOLE 500mg/100ml NS 100 ML IVPB SCH ×3 (04:10→20:21)
--- NOTE | 2017-12-22 07:38 | CP.PCM.PN ---
Subjective - Date & Time of Evaluation Date of Evaluation: 12/22/17 Time of Evaluation: 07:35 - Subjective Subjective: Surgery Pt seen and examined. No acute events. Afebrile. TOlerating diet. Denies nausea , diarrhea, CP , SOB. VOid + Objective - Vital Signs/Intake and Output Vital Signs (last 24 hours): Temp Pulse Resp BP Pulse Ox 98.0 F 75 18 100/63 100 12/21/17 23:28 12/21/17 23:28 12/21/17 23:28 12/21/17 23:28 12/21/17 23:28 - Medications Medications: Current Medications Acetaminophen (Tylenol 325mg Tab) 650 mg PO Q6 PRN PRN Reason: Fever >100.4 F Last Admin: 12/20/17 14:33 Dose: 650 mg Acetaminophen (Tylenol 325mg Tab) 650 mg PO Q4 PRN PRN Reason: Pain, Mild (1-3) Last Admin: 12/20/17 20:08 Dose: 650 mg Enoxaparin Sodium (Lovenox) 40 mg SC DAILY DENIS PRN Reason: Protocol Last Admin: 12/21/17 10:22 Dose: 40 mg Metronidazole (Flagyl 500mg/100ml Ns) 100 mls @ 100 mls/hr IVPB Q8@0500,1300, 2100 DENIS PRN Reason: Protocol Last Admin: 12/22/17 04:10 Dose: 100 mls/hr Tobramycin Sulfate 80 mg/ (Sodium Chloride) 102 mls @ 102 mls/hr IVPB Q12H DENIS PRN Reason: Protocol Last Admin: 12/22/17 05:38 Dose: 102 mls/hr Vancomycin HCl 1 gm/ Sodium (Chloride) 250 mls @ 166.667 mls/hr IVPB Q12 DENIS PRN Reason: Protocol Last Admin: 12/21/17 21:41 Dose: 166.667 mls/hr Ibuprofen (Motrin Tab) 600 mg PO Q6 PRN PRN Reason: Pain, severe (8-10) Last Admin: 12/22/17 05:39 Dose: 600 mg Lactobacillus Acidophilus (Bacid Acidophilus) 1 cap PO BID [facility] Last Admin: 12/21/17 18:28 Dose: 1 cap Morphine Sulfate (Morphine) 4 mg IVP Q4 PRN PRN Reason: breakthough pain Nystatin (Nystop Topical Powder) 1 applic TOP TID DENIS Last Admin: 12/21/17 18:29 Dose: 1 u Ondansetron HCl (Zofran Odt) 4 mg PO Q4H PRN PRN Reason: Nausea/Vomiting Last Admin: 12/22/17 02:07 Dose: 4 mg Oxycodone/Acetaminophen (Percocet 5/325 Mg Tab) 2 tab PO Q4 PRN PRN Reason: Pain, moderate (4-7) Stop: 12/23/17 14:47 - Labs Labs: 12/20/17 07:45 12/20/17 06:05 PT 13.6 Seconds (9.8-13.1) H 12/16/17 15:10 INR 1.2 (0.9-1.2) 12/16/17 15:10 APTT 35.1 Seconds (25.6-37.1) 12/15/17 20:42 - Constitutional Appears: No Acute Distress - Head Exam Head Exam: ATRAUMATIC, NORMAL INSPECTION, NORMOCEPHALIC - Eye Exam Eye Exam: EOMI, Normal appearance, PERRL Pupil Exam: NORMAL ACCOMODATION, PERRL - ENT Exam ENT Exam: Mucous Membranes Moist, Normal Exam - Neck Exam Neck Exam: Full ROM, Normal Inspection. absent: Lymphadenopathy - Respiratory Exam Respiratory Exam: Clear to Ausculation Bilateral, NORMAL BREATHING PATTERN - Cardiovascular Exam Cardiovascular Exam: REGULAR RHYTHM, +S1, +S2. absent: Murmur - GI/Abdominal Exam GI & Abdominal Exam: Soft, Normal Bowel Sounds. absent: Distended, Firm, Guarding, Rigid, Tenderness Additional comments: Incision C/D/I. Drain in place 240 upper serous. 75 lower serous - Extremities Exam Extremities Exam: Full ROM, Normal Inspection - Back Exam Back Exam: NORMAL INSPECTION - Neurological Exam Neurological Exam: Alert, Awake, CN II-XII Intact, Normal Gait, Oriented x3 - Psychiatric Exam Psychiatric exam: Normal Affect, Normal Mood - Skin Skin Exam: Dry, Intact, Normal Color, Warm Assessment and Plan - Assessment and Plan (Free Text) Assessment: 37F POD 5 s/p lap abscess drainage Plan: Afebrile Drain outputs: Upper 75cc/24hr serous, Lower 240cc/24hr serous -ABX per ID: Possible PO ABX recommendation. -Intake and output -Ambulate -IS -Pain control DW Dr. Mcgraw
[2017-12-22] MEDS: Enoxaparin 40 mg Syringe SC SCH (10:07)
[2017-12-22] MEDS: Lactobacillus Acidophilus 500 MU Cap PO SCH ×2 (10:07→17:14)
[2017-12-22 10:38] LABS: HEMOGLOBIN 10.3 g/dL (12.0-16.0); MEAN CELL VOLUME 83.8 fl (81.0-99.0); MEAN CORPUSCULAR HGB CONC 34.6 g/dL (33.0-37.0); RBC 3.56 Mil/uL (3.80-5.20); WHITE BLOOD COUNT 10.4 K/uL (4.8-10.8)
[2017-12-23] MEDS: metroNIDAZOLE 500mg/100ml NS 100 ML IVPB SCH ×3 (04:06→20:51)
[2017-12-23] MEDS ORDERED: Iohexol 240 (50 ml) PO ONE (08:24)
--- NOTE | 2017-12-23 08:29 | CP.PCM.PN ---
Subjective - Date & Time of Evaluation Date of Evaluation: 12/23/17 Time of Evaluation: 08:27 - Subjective Subjective: Surgery Pt seen and examined. No acute events. Afebrile. C/O RLQ abd pain. TOlerating diet. + void +Bm + amb. Objective - Vital Signs/Intake and Output Vital Signs (last 24 hours): Temp Pulse Resp BP Pulse Ox 97.7 F 59 L 18 107/71 98 12/23/17 08:05 12/23/17 08:05 12/23/17 08:05 12/23/17 08:05 12/23/17 08:05 - Medications Medications: Current Medications Acetaminophen (Tylenol 325mg Tab) 650 mg PO Q6 PRN PRN Reason: Fever >100.4 F Last Admin: 12/23/17 05:35 Dose: 650 mg Acetaminophen (Tylenol 325mg Tab) 650 mg PO Q4 PRN PRN Reason: Pain, Mild (1-3) Last Admin: 12/22/17 22:13 Dose: 650 mg Enoxaparin Sodium (Lovenox) 40 mg SC DAILY DEINS PRN Reason: Protocol Last Admin: 12/22/17 10:07 Dose: 40 mg Metronidazole (Flagyl 500mg/100ml Ns) 100 mls @ 100 mls/hr IVPB Q8@0500,1300, 2100 DENIS PRN Reason: Protocol Last Admin: 12/23/17 04:06 Dose: 100 mls/hr Tobramycin Sulfate 80 mg/ (Sodium Chloride) 102 mls @ 102 mls/hr IVPB Q12H DENIS PRN Reason: Protocol Last Admin: 12/23/17 06:14 Dose: 102 mls/hr Vancomycin HCl 1 gm/ Sodium (Chloride) 250 mls @ 166.667 mls/hr IVPB Q12 DENIS PRN Reason: Protocol Last Admin: 12/22/17 22:08 Dose: 166.667 mls/hr Ibuprofen (Motrin Tab) 600 mg PO Q6 PRN PRN Reason: Pain, severe (8-10) Last Admin: 12/23/17 07:52 Dose: 600 mg Iohexol (Omnipaque 240 (50 Ml)) 50 ml PO ONCE ONE Stop: 12/23/17 08:25 Lactobacillus Acidophilus (Bacid Acidophilus) 1 cap PO BID [facility] Last Admin: 12/22/17 17:14 Dose: 1 cap Nystatin (Nystop Topical Powder) 1 applic TOP TID@0900,1700,2100 DENIS Last Admin: 12/22/17 21:00 Dose: 1 applic Ondansetron HCl (Zofran Odt) 4 mg PO Q4H PRN PRN Reason: Nausea/Vomiting Last Admin: 12/23/17 00:30 Dose: 4 mg Oxycodone/Acetaminophen (Percocet 5/325 Mg Tab) 2 tab PO Q4 PRN PRN Reason: Pain, moderate (4-7) Stop: 12/23/17 14:47 - Labs Labs: 12/22/17 10:01 12/20/17 06:05 PT 13.6 Seconds (9.8-13.1) H 12/16/17 15:10 INR 1.2 (0.9-1.2) 12/16/17 15:10 APTT 35.1 Seconds (25.6-37.1) 12/15/17 20:42 - Constitutional Appears: No Acute Distress - Head Exam Head Exam: ATRAUMATIC, NORMAL INSPECTION, NORMOCEPHALIC - Eye Exam Eye Exam: EOMI, Normal appearance, PERRL Pupil Exam: NORMAL ACCOMODATION, PERRL - ENT Exam ENT Exam: Mucous Membranes Moist, Normal Exam - Neck Exam Neck Exam: Full ROM, Normal Inspection. absent: Lymphadenopathy - Respiratory Exam Respiratory Exam: Clear to Ausculation Bilateral, NORMAL BREATHING PATTERN - Cardiovascular Exam Cardiovascular Exam: REGULAR RHYTHM, +S1, +S2. absent: Murmur - GI/Abdominal Exam GI & Abdominal Exam: Soft, Tenderness, Normal Bowel Sounds. absent: Distended, Firm, Guarding, Rigid, Rebound Additional comments: drains x2 100cc serous /24hrs each . Incision C/D/I - Exam Exam: NORMAL INSPECTION - Extremities Exam Extremities Exam: Full ROM, Normal Capillary Refill, Normal Inspection. absent : Joint Swelling, Pedal Edema - Back Exam Back Exam: NORMAL INSPECTION - Neurological Exam Neurological Exam: Alert, Awake, CN II-XII Intact, Normal Gait, Oriented x3 - Psychiatric Exam Psychiatric exam: Normal Affect, Normal Mood - Skin Skin Exam: Dry, Intact, Normal Color, Warm Assessment and Plan - Assessment and Plan (Free Text) Assessment: 37F POD 6 s/p lap abscess drainage Plan: Afebrile Drain outputs: Upper 100cc/24hr serous, Lower 100cc/24hr serous -f/u CT A/P -ABX per ID: Possible PO ABX recommendation for DC. -Intake and output -Ambulate -IS -Pain control DW Dr. Mcgraw
[2017-12-23] MEDS: Enoxaparin 40 mg Syringe SC SCH (08:42)
[2017-12-23] MEDS: Lactobacillus Acidophilus 500 MU Cap PO SCH ×2 (08:42→17:43)
[2017-12-23] MEDS ORDERED: Lidocaine/Prilocaine CREAM 5GM TP ONE (09:29)
--- NOTE | 2017-12-23 11:06 | CP.PCM.PN ---
Subjective - Date & Time of Evaluation Date of Evaluation: 12/23/17 Time of Evaluation: 11:06 - Subjective Subjective: I D NOTE CULTURE : DELAYED GROWTH OF GROUP G STREP WBC:10 TODAY HAVE ORDERED REPEAT CBC REVIEWED C NURSING AND IS GOING FOR CT SCAN TODAY NO CHANGE IN RX Objective - Vital Signs/Intake and Output Vital Signs (last 24 hours): Temp Pulse Resp BP Pulse Ox 97.7 F 59 L 18 107/71 98 12/23/17 08:05 12/23/17 08:05 12/23/17 08:05 12/23/17 08:05 12/23/17 08:05 - Medications Medications: Current Medications Acetaminophen (Tylenol 325mg Tab) 650 mg PO Q6 PRN PRN Reason: Fever >100.4 F Last Admin: 12/23/17 05:35 Dose: 650 mg Acetaminophen (Tylenol 325mg Tab) 650 mg PO Q4 PRN PRN Reason: Pain, Mild (1-3) Last Admin: 12/22/17 22:13 Dose: 650 mg Enoxaparin Sodium (Lovenox) 40 mg SC DAILY DENIS PRN Reason: Protocol Last Admin: 12/23/17 08:42 Dose: 40 mg Metronidazole (Flagyl 500mg/100ml Ns) 100 mls @ 100 mls/hr IVPB Q8@0500,1300, 2100 DENIS PRN Reason: Protocol Last Admin: 12/23/17 04:06 Dose: 100 mls/hr Tobramycin Sulfate 80 mg/ (Sodium Chloride) 102 mls @ 102 mls/hr IVPB Q12H DENIS PRN Reason: Protocol Last Admin: 12/23/17 06:14 Dose: 102 mls/hr Vancomycin HCl 1 gm/ Sodium (Chloride) 250 mls @ 166.667 mls/hr IVPB Q12 DENIS PRN Reason: Protocol Last Admin: 12/23/17 08:43 Dose: 166.667 mls/hr Ibuprofen (Motrin Tab) 600 mg PO Q6 PRN PRN Reason: Pain, severe (8-10) Last Admin: 12/23/17 07:52 Dose: 600 mg Ketorolac Tromethamine (Toradol) 15 mg IVP Q6 PRN PRN Reason: Pain, severe (8-10) Lactobacillus Acidophilus (Bacid Acidophilus) 1 cap PO BID DENIS Last Admin: 12/23/17 08:42 Dose: 1 cap Nystatin (Nystop Topical Powder) 1 applic TOP TID@0900,1700,2100 DENIS Last Admin: 12/23/17 08:42 Dose: 1 applic Ondansetron HCl (Zofran Odt) 4 mg PO Q4H PRN PRN Reason: Nausea/Vomiting Last Admin: 12/23/17 00:30 Dose: 4 mg Oxycodone/Acetaminophen (Percocet 5/325 Mg Tab) 2 tab PO Q4 PRN PRN Reason: Pain, moderate (4-7) Stop: 12/23/17 14:47 - Labs Labs: 12/22/17 10:01 12/20/17 06:05 PT 13.6 Seconds (9.8-13.1) H 12/16/17 15:10 INR 1.2 (0.9-1.2) 12/16/17 15:10 APTT 35.1 Seconds (25.6-37.1) 12/15/17 20:42
[2017-12-23] MEDS ORDERED: Iohexol 300 100 ML IJ ONE (13:21)
[2017-12-23] MEDS ORDERED: Sodium Chloride 0.9% 100 ML ONE (13:21)
--- NOTE | 2017-12-23 15:34 | CT ---
PROCEDURE: CT Abdomen and Pelvis with contrast HISTORY: eval abscess COMPARISON: 12/15/2017 and 12/16/2017. TECHNIQUE: CT scan of the abdomen and pelvis was performed after administration of intravenous contrast. Oral contrast was administered. Coronal and sagittal reformatted images were obtained. Contrast dose: 90 ml Omnipaque 300 Radiation dose: Total exam DLP = 273.98 MGy-cm. This CT exam was performed using one or more of the following dose reduction techniques: Automated exposure control, adjustment of the mA and/or kV according to patient size, and/or use of iterative reconstruction technique. FINDINGS: LOWER THORAX: The visualized lungs are clear. LIVER: The liver is normal in size and there is diffuse fatty infiltration. There is 1.2 cm subcapsular hypodense lesion in the posterior right hepatic lobe. GALLBLADDER AND BILE DUCTS: Surgically absent. Mild intra and extrahepatic biliary dilatation in keeping with post cholecystectomy. PANCREAS: Normal in size with homogenous enhancement. No gross lesion or ductal dilatation. SPLEEN: Nor mal in size and appearance. ADRENALS: No discrete nodule. KIDNEYS AND URETERS: Normal in size with homogenous enhancement. No hydronephrosis. No solid mass. VASCULATURE: No aortic aneurysm. BOWEL: The small bowel loops are normal in caliber. There is moderate amount of stool in the colon. APPENDIX: Normal appendix. PERITONEUM: No free air. There is a 7.8 x 7.9 x 4.8 cm multilocular fluid collection with rim enhancement in the deep pelvis. There is interval placement of a pelvic drain. LYMPH NODES: No enlarged lymph nodes. BLADDER: Grossly normal in appearance. REPRODUCTIVE: The uterus is normal in sinus. BONES: No acute fracture. Within normal limits for the patient's age OTHER FINDINGS: None. IMPRESSION: 1. 7.8 x 7.9 x 4.8 cm multilocular pelvic abscess. 2. 1.2 cm subcapsular lesion in the posterior right hepatic lobe, nonspecific and could represent hemangioma or complicated cyst however small abscess cannot be excluded.
[2017-12-23 17:28] LABS: HEMOGLOBIN 11.3 g/dL (12.0-16.0); MEAN CELL VOLUME 84.2 fl (81.0-99.0); MEAN CORPUSCULAR HEMOGLOBIN 27.9 pg (27.0-31.0); MEAN CORPUSCULAR HGB CONC 33.1 g/dL (33.0-37.0); RBC 4.07 Mil/uL (3.80-5.20); RED CELL DISTRIBUTION WIDTH 15.9 % (11.5-14.5); WHITE BLOOD COUNT 10.3 K/uL (4.8-10.8)
[2017-12-24] MEDS: metroNIDAZOLE 500mg/100ml NS 100 ML IVPB SCH ×3 (04:14→20:38)
[2017-12-24] MEDS: Enoxaparin 40 mg Syringe SC SCH (08:19)
[2017-12-24] MEDS: Lactobacillus Acidophilus 500 MU Cap PO SCH ×2 (08:22→17:13)
[2017-12-24 09:23] LABS: BASO # 0.1 K/uL (0.0-0.2); BASO % 1.2 % (0.0-2.0); EOS # 0.6 K/uL (0.0-0.7); EOS % 7.1 % (0.0-4.0); HEMOGLOBIN 11.5 g/dL (12.0-16.0); LYMPH % 10.8 % (20.0-40.0); MEAN CELL VOLUME 84.2 fl (81.0-99.0); MEAN CORPUSCULAR HEMOGLOBIN 28.5 pg (27.0-31.0); MEAN CORPUSCULAR HGB CONC 33.9 g/dL (33.0-37.0); MEAN PLATELET VOLUME 7.9 fl (7.2-11.7); MONO # 0.5 K/uL (0.0-0.8); MONO % 5.7 % (0.0-10.0); NEUT # 6.7 K/uL (1.8-7.0); NEUT % 75.2 % (50.0-75.0); NRBC % 0.1 % (0.0-0.0); RBC 4.04 Mil/uL (3.80-5.20); RED CELL DISTRIBUTION WIDTH 15.8 % (11.5-14.5); WHITE BLOOD COUNT 8.9 K/uL (4.8-10.8)
--- NOTE | 2017-12-24 11:53 | CP.PCM.PN ---
Subjective - Date & Time of Evaluation Date of Evaluation: 12/24/17 Time of Evaluation: 08:00 - Subjective Subjective: Patient seen and examined. No acute events over night. Tolerating diet. Having BM. Denies fever/chills, n/v. Objective - Vital Signs/Intake and Output Vital Signs (last 24 hours): Temp Pulse Resp BP Pulse Ox 98.1 F 67 20 112/75 98 12/24/17 08:08 12/24/17 08:08 12/24/17 08:08 12/24/17 08:08 12/24/17 08:08 - Medications Medications: Current Medications Acetaminophen (Tylenol 325mg Tab) 650 mg PO Q6 PRN PRN Reason: Fever >100.4 F Last Admin: 12/23/17 05:35 Dose: 650 mg Acetaminophen (Tylenol 325mg Tab) 650 mg PO Q4 PRN PRN Reason: Pain, Mild (1-3) Last Admin: 12/24/17 04:09 Dose: 650 mg Enoxaparin Sodium (Lovenox) 40 mg SC DAILY DENIS PRN Reason: Protocol Last Admin: 12/24/17 08:19 Dose: 40 mg Metronidazole (Flagyl 500mg/100ml Ns) 100 mls @ 100 mls/hr IVPB Q8@0500,1300, 2100 DENIS PRN Reason: Protocol Last Admin: 12/24/17 04:14 Dose: 100 mls/hr Tobramycin Sulfate 80 mg/ (Sodium Chloride) 102 mls @ 102 mls/hr IVPB Q12H DENIS PRN Reason: Protocol Last Admin: 12/24/17 06:38 Dose: 102 mls/hr Vancomycin HCl 1 gm/ Sodium (Chloride) 250 mls @ 166.667 mls/hr IVPB Q12 DENIS PRN Reason: Protocol Last Admin: 12/24/17 08:14 Dose: 166.667 mls/hr Ibuprofen (Motrin Tab) 600 mg PO Q6 PRN PRN Reason: Pain, severe (8-10) Last Admin: 12/23/17 07:52 Dose: 600 mg Ketorolac Tromethamine (Toradol) 15 mg IVP Q6 PRN PRN Reason: Pain, severe (8-10) Last Admin: 12/24/17 05:49 Dose: 15 mg Lactobacillus Acidophilus (Bacid Acidophilus) 1 cap PO BID [facility] Last Admin: 12/24/17 08:22 Dose: 1 cap Nystatin (Nystop Topical Powder) 1 applic TOP TID@0900,1700,2100 [facility] Last Admin: 12/24/17 08:19 Dose: 1 applic Ondansetron HCl (Zofran Odt) 4 mg PO Q4H PRN PRN Reason: Nausea/Vomiting Last Admin: 12/23/17 11:41 Dose: 4 mg Senna/Docusate Sodium (Senokot S 50 Mg-8.6 Mg) 2 tab PO HS [facility] - Labs Labs: 12/24/17 09:14 12/20/17 06:05 PT 13.6 Seconds (9.8-13.1) H 12/16/17 15:10 INR 1.2 (0.9-1.2) 12/16/17 15:10 APTT 35.1 Seconds (25.6-37.1) 12/15/17 20:42 - Constitutional Appears: No Acute Distress - Head Exam Head Exam: NORMOCEPHALIC - Eye Exam Eye Exam: Normal appearance - ENT Exam ENT Exam: Mucous Membranes Moist - Respiratory Exam Respiratory Exam: NORMAL BREATHING PATTERN - Cardiovascular Exam Cardiovascular Exam: +S1, +S2 - GI/Abdominal Exam GI & Abdominal Exam: Soft. absent: Distended, Firm, Guarding, Rigid - Neurological Exam Neurological Exam: Alert, Awake, Oriented x3 - Psychiatric Exam Psychiatric exam: Normal Mood - Skin Skin Exam: Dry, Intact, Warm Assessment and Plan - Assessment and Plan (Free Text) Assessment: 37F POD 7 s/p laparoscopic abscess drainage Plan: Afebrile Drain outputs: Upper 100cc/24hr serous, Lower 115cc/24hr serous -ABX per ID. f/u recommendations -Encourage ambulation -IS -Pain control -Stool softener D/w Dr. Mariluz PATEL PGY2
--- NOTE | 2017-12-24 15:21 | CP.PCM.PN ---
Subjective - Date & Time of Evaluation Date of Evaluation: 12/24/17 Time of Evaluation: 15:10 - Subjective Subjective: I D NOTE CT NOTED AND DISCUSSED c AND WE AGREE TO CONTIUE IV RX IN HOSPITAL WBC:8.9,PLATELETS:645 LUNGS:CLEAR HEART:RSR STILL HAS SEROSANGUINOUS DRAINAGE Objective - Vital Signs/Intake and Output Vital Signs (last 24 hours): Temp Pulse Resp BP Pulse Ox 98.1 F 67 20 112/75 98 12/24/17 08:08 12/24/17 08:08 12/24/17 08:08 12/24/17 08:08 12/24/17 08:08 - Medications Medications: Current Medications Acetaminophen (Tylenol 325mg Tab) 650 mg PO Q6 PRN PRN Reason: Fever >100.4 F Last Admin: 12/23/17 05:35 Dose: 650 mg Acetaminophen (Tylenol 325mg Tab) 650 mg PO Q4 PRN PRN Reason: Pain, Mild (1-3) Last Admin: 12/24/17 04:09 Dose: 650 mg Enoxaparin Sodium (Lovenox) 40 mg SC DAILY DENIS PRN Reason: Protocol Last Admin: 12/24/17 08:19 Dose: 40 mg Metronidazole (Flagyl 500mg/100ml Ns) 100 mls @ 100 mls/hr IVPB Q8@0500,1300, 2100 DENIS PRN Reason: Protocol Last Admin: 12/24/17 13:06 Dose: 100 mls/hr Tobramycin Sulfate 80 mg/ (Sodium Chloride) 102 mls @ 102 mls/hr IVPB Q12H DENIS PRN Reason: Protocol Last Admin: 12/24/17 06:38 Dose: 102 mls/hr Vancomycin HCl 1 gm/ Sodium (Chloride) 250 mls @ 166.667 mls/hr IVPB Q12 DENIS PRN Reason: Protocol Last Admin: 12/24/17 08:14 Dose: 166.667 mls/hr Ibuprofen (Motrin Tab) 600 mg PO Q6 PRN PRN Reason: Pain, severe (8-10) Last Admin: 12/23/17 07:52 Dose: 600 mg Ketorolac Tromethamine (Toradol) 15 mg IVP Q6 PRN PRN Reason: Pain, severe (8-10) Last Admin: 12/24/17 05:49 Dose: 15 mg Lactobacillus Acidophilus (Bacid Acidophilus) 1 cap PO BID [facility] Last Admin: 12/24/17 08:22 Dose: 1 cap Nystatin (Nystop Topical Powder) 1 applic TOP TID@0900,1700,2100 [facility] Last Admin: 12/24/17 08:19 Dose: 1 applic Ondansetron HCl (Zofran Odt) 4 mg PO Q4H PRN PRN Reason: Nausea/Vomiting Last Admin: 12/23/17 11:41 Dose: 4 mg Senna/Docusate Sodium (Senokot S 50 Mg-8.6 Mg) 2 tab PO HS [facility] - Labs Labs: 12/24/17 09:14 12/20/17 06:05 PT 13.6 Seconds (9.8-13.1) H 12/16/17 15:10 INR 1.2 (0.9-1.2) 12/16/17 15:10 APTT 35.1 Seconds (25.6-37.1) 12/15/17 20:42
[2017-12-24] MEDS ORDERED: Lidocaine/Prilocaine CREAM 5GM TP ONE (17:48)
[2017-12-24] MEDS: Docusate-Senna 50 mg-8.6 mg Tab PO SCH (21:52)
[2017-12-25] MEDS: metroNIDAZOLE 500mg/100ml NS 100 ML IVPB SCH ×3 (04:42→20:49)
[2017-12-25] MEDS: Lactobacillus Acidophilus 500 MU Cap PO SCH ×2 (08:11→17:13)
--- NOTE | 2017-12-25 08:50 | PCM.OP ---
Operative Report - Operative Report Date of Surgery/Procedure: 12/17/17 Time of Surgery/Procedure: 14:00 Surgeon: Dr. Addy Mcgraw Display Card Writer: Dr. Jada Schwarz Anesthesia/Sedation: general/Dr. Lindsay Pre-Operative Diagnosis: intraabdominal abscess and sepsis Post-Operative Diagnosis: same Indication for Surgery: as above Operative Findings: intraabdominal and pelvic abscess Procedure/Operation Description: 1-Laparoscopic drainage of intraabdominal and pelvic abscess. Brief History: This is a 37 year old woman who was previously operated for pelvic absccess after having ova retrieval in [facility]. The operation opened a loculated abscess and she was dischrged in stable condition. She now returns through the ER with abdominal pain and sepsis. CT scan demonstrates a recurrent loculated pelvic and abdominal abscess. Description of the Procedure: The patient was brought to the oeprating room and after induction of general endotracheal anesthesia she was prepped and drapped in the usula sterile manner. The previous umbilical incision was opened and Zaman trocar was inserted with ease. Two other 5 mm ports were placed in the usual fashion, one through an exisiting incision. Videoscopy demonstrated multiple areas of pelvic infalmmation and pus. The area of the pelvis wa mobilized and gnetly irrigated until the fluid was clear. Two 19F Valdo draoins were placed in the pelvis and brought out through the 5 mm port incisions, and then secured to the skin with 3-0 nylon sutures. The area was examined and hemostasis was deemed adequate. Trocars were removed and pneumoperitoneum was released. The Umbilical incision was closed with 2-0 PDS. Skin was closed with 4-0 monocryl. A clean dressing was applied. The patient was awakened, extubated and brought to the recovery room in stable condition. Estimated Blood Loss: 20 cc Drains: Valdo 19F (times two) Complications: none Specimen: Abscess fluid for microbiology Discharge & Condition: stable
[2017-12-25 08:55] LABS: BASO # 0.1 K/uL (0.0-0.2); BASO % 1.1 % (0.0-2.0); EOS # 0.6 K/uL (0.0-0.7); EOS % 6.3 % (0.0-4.0); HEMOGLOBIN 10.6 g/dL (12.0-16.0); LYMPH # 0.7 K/uL (1.0-4.3); LYMPH % 7.9 % (20.0-40.0); MEAN CELL VOLUME 83.3 fl (81.0-99.0); MEAN CORPUSCULAR HEMOGLOBIN 27.9 pg (27.0-31.0); MEAN CORPUSCULAR HGB CONC 33.5 g/dL (33.0-37.0); MEAN PLATELET VOLUME 7.8 fl (7.2-11.7); MONO # 0.7 K/uL (0.0-0.8); NEUT # 7.2 K/uL (1.8-7.0); NEUT % 77.7 % (50.0-75.0); PLATELET COUNT 632 K/uL (130-400); RBC 3.81 Mil/uL (3.80-5.20); RED CELL DISTRIBUTION WIDTH 15.5 % (11.5-14.5); WHITE BLOOD COUNT 9.3 K/uL (4.8-10.8)
[2017-12-25 09:18] LABS: ALB/GLOB RATIO 0.9 (1.0-2.1); ALBUMIN 3.3 g/dL (3.5-5.0); ALT/SGPT 58 U/L (9-52); AST/SGOT 44 U/L (14-36); BLOOD UREA NITROGEN 10 mg/dl (7-17); CALCIUM 8.8 mg/dL (8.4-10.2); GFR AFRICAN-AMERICAN > 60; GFR NON-AFRICAN AMERICAN > 60
--- NOTE | 2017-12-25 09:19 | PCM.OP ---
Operative Report - Operative Report Date of Surgery/Procedure: 12/11/17 Time of Surgery/Procedure: 08:00 Surgeon: Dr. Addy Mcgraw Parts Designer: Dr. Rafa Davis Anesthesia/Sedation: general/Dr. Bacon Pre-Operative Diagnosis: abdominal pain from pelvic abscess and endometriosis Post-Operative Diagnosis: same Indication for Surgery: as above Operative Findings: as above Procedure/Operation Description: 1-Excision perirectal endometriosis (times two) . 2-Appendectomy. Brief History: This 37 year old woman was brought to the oeprating room with a pelvic abscess abdomninal pain and endometriosis. 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 Description of the Procedure: Dr. Davis yadiel already intiated his robotic procedure (separate dictation Dr. Davis). After luis alfredo control of the robotic console the rectal lesions were examined and the first lesion was incised circumferentially with electrocautery and excided en- bloc with both blunt and sharp dissection. the specime was mrked and sent to pathology separately. The second rectal lesion was removed in a similar fashion and sent to pathology separately. The appendix was then retracted anteriorly and the esentery was dessicated with electrocauery with particular attention to the appendiceal artery. The base of the appendix was looped with three 2-0 vicryl endoloops and then trnasectred. The appnedix was sent to apthology separaelemir. the operation was then turned over to Dr. Davis (separte dictation). Estimated Blood Loss: 10 cc Complications: none Specimen: 1-rectal lesions (times two). 2-appendix Discharge & Condition: stable
--- NOTE | 2017-12-25 10:24 | CP.PCM.PN ---
Subjective - Date & Time of Evaluation Date of Evaluation: 12/25/17 Time of Evaluation: 10:21 - Subjective Subjective: Surgery Pt plan on getting IR drainage of abscess today. Kept NPO. Pain controlled. Drain in place. +void. Denies fevers, nausea, diarrhea. Objective - Vital Signs/Intake and Output Vital Signs (last 24 hours): Temp Pulse Resp BP Pulse Ox 97.9 F 93 H 18 102/69 99 12/25/17 07:59 12/25/17 07:59 12/25/17 07:59 12/25/17 07:59 12/25/17 07:59 - Medications Medications: Current Medications Acetaminophen (Tylenol 325mg Tab) 650 mg PO Q6 PRN PRN Reason: Fever >100.4 F Last Admin: 12/23/17 05:35 Dose: 650 mg Acetaminophen (Tylenol 325mg Tab) 650 mg PO Q4 PRN PRN Reason: Pain, Mild (1-3) Last Admin: 12/24/17 21:32 Dose: 650 mg Enoxaparin Sodium (Lovenox) 40 mg SC DAILY DENIS PRN Reason: Protocol Last Admin: 12/24/17 08:19 Dose: 40 mg Metronidazole (Flagyl 500mg/100ml Ns) 100 mls @ 100 mls/hr IVPB Q8@0500,1300, 2100 DENIS PRN Reason: Protocol Last Admin: 12/25/17 04:42 Dose: 100 mls/hr Tobramycin Sulfate 80 mg/ (Sodium Chloride) 102 mls @ 102 mls/hr IVPB Q12H DENIS PRN Reason: Protocol Last Admin: 12/25/17 06:48 Dose: 102 mls/hr Vancomycin HCl 1 gm/ Sodium (Chloride) 250 mls @ 166.667 mls/hr IVPB Q12 DENIS PRN Reason: Protocol Last Admin: 12/24/17 21:51 Dose: 166.667 mls/hr Ibuprofen (Motrin Tab) 600 mg PO Q6 PRN PRN Reason: Pain, severe (8-10) Last Admin: 12/23/17 07:52 Dose: 600 mg Ketorolac Tromethamine (Toradol) 15 mg IVP Q6 PRN PRN Reason: Pain, severe (8-10) Last Admin: 12/25/17 06:49 Dose: 15 mg Lactobacillus Acidophilus (Bacid Acidophilus) 1 cap PO BID [facility] Last Admin: 12/25/17 08:11 Dose: Not Given Nystatin (Nystop Topical Powder) 1 applic TOP TID@0900,1700,2100 [facility] Last Admin: 12/24/17 20:47 Dose: 1 applic Ondansetron HCl (Zofran Odt) 4 mg PO Q4H PRN PRN Reason: Nausea/Vomiting Last Admin: 12/23/17 11:41 Dose: 4 mg Senna/Docusate Sodium (Senokot S 50 Mg-8.6 Mg) 2 tab PO HS [facility] Last Admin: 12/24/17 21:52 Dose: 2 tab - Labs Labs: 12/25/17 08:45 12/25/17 08:45 PT 13.6 Seconds (9.8-13.1) H 12/16/17 15:10 INR 1.2 (0.9-1.2) 12/16/17 15:10 APTT 35.1 Seconds (25.6-37.1) 12/15/17 20:42 - Constitutional Appears: No Acute Distress - Head Exam Head Exam: ATRAUMATIC, NORMAL INSPECTION, NORMOCEPHALIC - Eye Exam Eye Exam: EOMI, Normal appearance, PERRL Pupil Exam: NORMAL ACCOMODATION, PERRL - ENT Exam ENT Exam: Mucous Membranes Moist, Normal Exam - Neck Exam Neck Exam: Full ROM, Normal Inspection. absent: Lymphadenopathy - Respiratory Exam Respiratory Exam: Clear to Ausculation Bilateral, NORMAL BREATHING PATTERN - Cardiovascular Exam Cardiovascular Exam: REGULAR RHYTHM, +S1, +S2. absent: Murmur - GI/Abdominal Exam GI & Abdominal Exam: Soft, Normal Bowel Sounds. absent: Distended, Guarding, Rigid, Tenderness Additional comments: Drains x2. 80cc and 10cc serous overnight - Exam Exam: NORMAL INSPECTION - Extremities Exam Extremities Exam: Full ROM, Normal Capillary Refill, Normal Inspection. absent : Joint Swelling, Pedal Edema - Back Exam Back Exam: NORMAL INSPECTION - Neurological Exam Neurological Exam: Alert, Awake, CN II-XII Intact, Normal Gait, Oriented x3 - Psychiatric Exam Psychiatric exam: Normal Affect, Normal Mood - Skin Skin Exam: Dry, Intact, Normal Color, Warm Assessment and Plan - Assessment and Plan (Free Text) Assessment: 37F POD 8 s/p laparoscopic abscess drainage Plan: Afebrile Drain outputs: Upper 80cc/12hr serous, Lower 10cc/24hr serous -ABX per ID. f/u recommendations -F/U IR drain today -Reg diet after -Encourage ambulation -IS -Pain control -Stool softener D/w Dr. Mcgraw
[2017-12-25] MEDS ORDERED: Propofol 10 mg/ml Inj (20 ML) ONE ×2 (10:56→11:48)
[2017-12-25] MEDS ORDERED: Ketamine 50 mg/ml Inj (10 ml) ONE (10:57)
[2017-12-25] MEDS ORDERED: Midazolam 2 MG/2 ML VIAL ONE (10:57)
[2017-12-25] MEDS ORDERED: Lidocaine 1% Inj (20ml) ONE (11:15)
[2017-12-25] MEDS ORDERED: Sodium Chloride 0.9% 250 ML IV ONE (12:05)
--- NOTE | 2017-12-25 12:38 | PCM.SURG1 ---
Surgeon's Initial Post Op Note - Surgeon's Notes Surgeon: Karlos Dowling MD Buffer Copper: None Type of Anesthesia: MAC Pre-Operative Diagnosis: pelvic abscess Operative Findings: shift of previously seen posterior pelvic fluid to dependent portion of abdomen with positional change. no fluid aspirated Post-Operative Diagnosis: pelvic fluid Operation Performed: attempted CT guided pelvic abscess drainage Specimen/Specimens Removed: n/a Estimated Blood Loss: EBL {In ML}: 3 Date of Surgery/Procedure: 12/25/17 Time of Surgery/Procedure: 12:00
[2017-12-25 13:56] LABS: ANISOCYTOSIS SLIGHT; EOSINOPHIL 5 % (0-7); HYPOCHROMIC SLIGHT; LYMPHOCYTE 7 % (20-50); MONOCYTE 6 % (0-10); NEUTROPHIL 82 % (42-75); PLATELET ESTIMATE INCREASED (NORMAL); TOTAL CELLS COUNTED 100
--- NOTE | 2017-12-25 20:06 | CP.PCM.PN ---
Subjective - Date & Time of Evaluation Date of Evaluation: 12/25/17 Time of Evaluation: 20:04 - Subjective Subjective: I D NOTE IR ATTEMPTED DRAINAGE TODAY S REMOVAL OF ANY FLUID MAY CONSIDER CHANGE IN ANTIBIOTICS TOMORROW REVIEWED C Objective - Vital Signs/Intake and Output Vital Signs (last 24 hours): Temp Pulse Resp BP Pulse Ox 98.5 F 85 18 98/59 L 97 12/25/17 16:09 12/25/17 16:09 12/25/17 16:09 12/25/17 16:09 12/25/17 16:09 Intake and Output: 12/25/17 12/26/17 18:59 06:59 Intake Total 100 Output Total 110 Balance -10 - Medications Medications: Current Medications Acetaminophen (Tylenol 325mg Tab) 650 mg PO Q6 PRN PRN Reason: Fever >100.4 F Last Admin: 12/23/17 05:35 Dose: 650 mg Acetaminophen (Tylenol 325mg Tab) 650 mg PO Q4 PRN PRN Reason: Pain, Mild (1-3) Last Admin: 12/24/17 21:32 Dose: 650 mg Enoxaparin Sodium (Lovenox) 40 mg SC DAILY DENIS PRN Reason: Protocol Last Admin: 12/24/17 08:19 Dose: 40 mg Metronidazole (Flagyl 500mg/100ml Ns) 100 mls @ 100 mls/hr IVPB Q8@0500,1300, 2100 DENIS PRN Reason: Protocol Last Admin: 12/25/17 17:12 Dose: 100 mls/hr Tobramycin Sulfate 80 mg/ (Sodium Chloride) 102 mls @ 102 mls/hr IVPB Q12H DENIS PRN Reason: Protocol Last Admin: 12/25/17 19:12 Dose: 102 mls/hr Vancomycin HCl 1 gm/ Sodium (Chloride) 250 mls @ 166.667 mls/hr IVPB Q12 DENIS PRN Reason: Protocol Last Admin: 12/25/17 13:12 Dose: 166.667 mls/hr Ibuprofen (Motrin Tab) 600 mg PO Q6 PRN PRN Reason: Pain, severe (8-10) Last Admin: 12/23/17 07:52 Dose: 600 mg Ketorolac Tromethamine (Toradol) 15 mg IVP Q6 PRN PRN Reason: Pain, severe (8-10) Last Admin: 12/25/17 14:48 Dose: 15 mg Lactobacillus Acidophilus (Bacid Acidophilus) 1 cap PO BID [facility] Last Admin: 12/25/17 17:13 Dose: 1 cap Nystatin (Nystop Topical Powder) 1 applic TOP TID@0900,1700,2100 [facility] Last Admin: 12/25/17 17:09 Dose: 1 applic Ondansetron HCl (Zofran Odt) 4 mg PO Q4H PRN PRN Reason: Nausea/Vomiting Last Admin: 12/23/17 11:41 Dose: 4 mg Senna/Docusate Sodium (Senokot S 50 Mg-8.6 Mg) 2 tab PO HS [facility] Last Admin: 12/24/17 21:52 Dose: 2 tab - Labs Labs: 12/25/17 08:45 12/25/17 08:45 PT 13.6 Seconds (9.8-13.1) H 12/16/17 15:10 INR 1.2 (0.9-1.2) 12/16/17 15:10 APTT 35.1 Seconds (25.6-37.1) 12/15/17 20:42
[2017-12-25] MEDS: Docusate-Senna 50 mg-8.6 mg Tab PO SCH (22:49)
[2017-12-26] MEDS: metroNIDAZOLE 500mg/100ml NS 100 ML IVPB SCH ×5 (04:07→23:07)
[2017-12-26 06:32] LABS: HEMOGLOBIN 10.2 g/dL (12.0-16.0); MEAN CELL VOLUME 84.1 fl (81.0-99.0); MEAN CORPUSCULAR HEMOGLOBIN 28.2 pg (27.0-31.0); MEAN CORPUSCULAR HGB CONC 33.6 g/dL (33.0-37.0); RBC 3.63 Mil/uL (3.80-5.20); RED CELL DISTRIBUTION WIDTH 15.5 % (11.5-14.5); WHITE BLOOD COUNT 6.7 K/uL (4.8-10.8)
[2017-12-26] MEDS: Lactobacillus Acidophilus 500 MU Cap PO SCH ×2 (09:16→17:44)
--- NOTE | 2017-12-26 11:10 | CT ---
PROCEDURE: CT-GUIDED ABSCESS DRAINAGE CLINICAL HISTORY: 37-year-old female with reported recurrent pelvic abscess is referred to Interventional Radiology for percutaneous abscess drainage. COMPARISON: CT scan of the abdomen and pelvis dated 12/23/2017 PROCEDURE: 1. Focused CT of the pelvis. 2. Attempted CT-guided abscess drainage. PRE-PROCEDURE FINDINGS: 1. Deep pelvic fluid collection as seen on recent CT scan POST-PROCEDURE FINDINGS: 1. Migration of deeper fluid collection to dependent portion of the pelvis. INTERVENTIONAL RADIOLOGIST: Karlos Dowling M.D. (the attending was present for the entire procedure) ANESTHESIA: Provided by the attending anesthesiologist. Sedation was supervised by the anesthesiology attending with the presence of independent radiology nursing monitoring. Physiological data monitoring was performed throughout the entire procedure. The patient's blood pressure, EKG and pulse oximetry were recorded. The patient tolerated the procedure and sedation without untoward reactions. The intra-procedural sedation time was 40 minutes. MEDICATIONS: Lidocaine 1% for local subcutaneous analgesia. See anesthesia record for intravenous sedation medication. COMPLICATIONS: None. PROCEDURE DESCRIPTION AND FINDINGS: The risks, benefits, alternatives and possible complications of the procedure were fully discussed; all questions were answered and informed consent was obtained. The patient was brought into the interventional suite and a pre-procedure 'time-out' was performed. The patient was placed on the CT table in the prone position. The fluid collection was localized under CT-guidance and a he was made on the overlying skin. The left gluteal region was prepped and draped in the usual sterile fashion. Maximum sterile barrier precautions were maintained throughout the entire procedure. Preliminary focused CT images of the pelvis again demonstrate deep pelvic fluid collection. Following subcutaneous infiltration of lidocaine 1% for local analgesia, under CT-guidance, attempts were made to advance an 18-gauge trocar needle into the pelvic fluid collection. However, over time, the pelvic fluid migrated dependently to the anterior pelvis. Due to the anterior location, the fluid was unable to be accessed percutaneously. Post-procedure imaging demonstrated the pelvic fluid along the anterior, dependent portion of the pelvis. The patient tolerated the procedure well without immediate post-procedure complications and was transferred back to the floor in stable condition. IMPRESSION: Unsuccessful CT-guided drainage of pelvic fluid. Throughout the course the procedure, the pelvic fluid shifted to the anterior, dependent portion of the pelvis suggesting this was free fluid and less likely to represent an abscess. The fluid was unable to be accessed percutaneously ; therefore aspiration/drainage was not performed. Findings were discussed with Dr. Mcgraw immediately after conclusion of the procedure.
--- NOTE | 2017-12-26 13:34 | CP.PCM.PN ---
Subjective - Date & Time of Evaluation Date of Evaluation: 12/26/17 Time of Evaluation: 13:32 - Subjective Subjective: General Surgery Progress Note 37F seen this AM at bedside. Is AAO x 3 and NAD. Denies any acute overnight events. States that pain is well controlled. Denies any recent N/V/F/C/CP/SOB/ D. Objective - Vital Signs/Intake and Output Vital Signs (last 24 hours): Temp Pulse Resp BP Pulse Ox 98.6 F 73 18 109/64 98 12/26/17 09:00 12/26/17 09:00 12/26/17 09:00 12/26/17 09:00 12/26/17 09:00 - Medications Medications: Current Medications Acetaminophen (Tylenol 325mg Tab) 650 mg PO Q6 PRN PRN Reason: Fever >100.4 F Last Admin: 12/23/17 05:35 Dose: 650 mg Acetaminophen (Tylenol 325mg Tab) 650 mg PO Q4 PRN PRN Reason: Pain, Mild (1-3) Last Admin: 12/24/17 21:32 Dose: 650 mg Enoxaparin Sodium (Lovenox) 40 mg SC DAILY DENIS PRN Reason: Protocol Last Admin: 12/24/17 08:19 Dose: 40 mg Metronidazole (Flagyl 500mg/100ml Ns) 100 mls @ 100 mls/hr IVPB Q8@0500,1300, 2100 DENIS PRN Reason: Protocol Last Admin: 12/26/17 04:07 Dose: 100 mls/hr Tobramycin Sulfate 80 mg/ (Sodium Chloride) 102 mls @ 102 mls/hr IVPB Q12H DENIS PRN Reason: Protocol Last Admin: 12/26/17 05:16 Dose: 102 mls/hr Vancomycin HCl 1 gm/ Sodium (Chloride) 250 mls @ 166.667 mls/hr IVPB Q12 DENIS PRN Reason: Protocol Last Admin: 12/26/17 09:19 Dose: 166.667 mls/hr Ibuprofen (Motrin Tab) 600 mg PO Q6 PRN PRN Reason: Pain, severe (8-10) Last Admin: 12/23/17 07:52 Dose: 600 mg Ketorolac Tromethamine (Toradol) 15 mg IVP Q6 PRN PRN Reason: Pain, severe (8-10) Last Admin: 12/26/17 05:49 Dose: 15 mg Lactobacillus Acidophilus (Bacid Acidophilus) 1 cap PO BID [facility] Last Admin: 12/26/17 09:16 Dose: 1 cap Nystatin (Nystop Topical Powder) 1 applic TOP TID@0900,1700,2100 [facility] Last Admin: 12/26/17 09:30 Dose: 1 applic Ondansetron HCl (Zofran Odt) 4 mg PO Q4H PRN PRN Reason: Nausea/Vomiting Last Admin: 12/23/17 11:41 Dose: 4 mg Senna/Docusate Sodium (Senokot S 50 Mg-8.6 Mg) 2 tab PO HS [facility] Last Admin: 12/25/17 22:49 Dose: Not Given - Labs Labs: 12/26/17 05:55 12/25/17 08:45 PT 13.6 Seconds (9.8-13.1) H 12/16/17 15:10 INR 1.2 (0.9-1.2) 12/16/17 15:10 APTT 35.1 Seconds (25.6-37.1) 12/15/17 20:42 - Constitutional Appears: Well, Non-toxic, No Acute Distress - Head Exam Head Exam: ATRAUMATIC, NORMOCEPHALIC - GI/Abdominal Exam Additional comments: Drains x2. 104cc and 40cc serous overnight - Neurological Exam Neurological Exam: Alert, Awake, Oriented x3 - Psychiatric Exam Psychiatric exam: Normal Affect, Normal Mood Assessment and Plan - Assessment and Plan (Free Text) Assessment: 37F POD 9 s/p laparoscopic abscess drainage Plan: Afebrile Free fluid found by IR yesterday, not abscess; no fluid drained Drain outputs: Upper 104cc/24hr serous, Lower 40cc/24hr serous May pull lower drain tomorrow if drainage is <50 cc/24hr F/u abx recs from ID Pain meds Regular diet Encourage ambulation Incentive Spirometer D/w Dr. Mcgraw
--- NOTE | 2017-12-26 21:31 | CP.PCM.PN ---
Subjective - Date & Time of Evaluation Date of Evaluation: 12/26/17 Time of Evaluation: 21:30 - Subjective Subjective: I D NOTE WBC:6.7 PLATELETS:562(TRENDING DOWN) WILL CONTINUE SAME RX Objective - Vital Signs/Intake and Output Vital Signs (last 24 hours): Temp Pulse Resp BP Pulse Ox 98.7 F 85 18 100/62 100 12/26/17 16:23 12/26/17 16:23 12/26/17 16:23 12/26/17 16:23 12/26/17 16:23 Intake and Output: 12/26/17 12/27/17 18:59 06:59 Output Total 130 Balance -130 - Medications Medications: Current Medications Acetaminophen (Tylenol 325mg Tab) 650 mg PO Q6 PRN PRN Reason: Fever >100.4 F Last Admin: 12/23/17 05:35 Dose: 650 mg Acetaminophen (Tylenol 325mg Tab) 650 mg PO Q4 PRN PRN Reason: Pain, Mild (1-3) Last Admin: 12/26/17 16:11 Dose: 650 mg Enoxaparin Sodium (Lovenox) 40 mg SC DAILY DENIS PRN Reason: Protocol Last Admin: 12/24/17 08:19 Dose: 40 mg Enoxaparin Sodium (Lovenox) 40 mg SC DAILY DENIS PRN Reason: Protocol Metronidazole (Flagyl 500mg/100ml Ns) 100 mls @ 100 mls/hr IVPB Q8@0500,1300, 2100 DENIS PRN Reason: Protocol Last Admin: 12/26/17 15:03 Dose: 100 mls/hr Tobramycin Sulfate 80 mg/ (Sodium Chloride) 102 mls @ 102 mls/hr IVPB Q12H DENIS PRN Reason: Protocol Last Admin: 12/26/17 17:48 Dose: 102 mls/hr Vancomycin HCl 1 gm/ Sodium (Chloride) 250 mls @ 166.667 mls/hr IVPB Q12 DENIS PRN Reason: Protocol Last Admin: 12/26/17 09:19 Dose: 166.667 mls/hr Ibuprofen (Motrin Tab) 600 mg PO Q6 PRN PRN Reason: Pain, severe (8-10) Last Admin: 12/23/17 07:52 Dose: 600 mg Ketorolac Tromethamine (Toradol) 15 mg IVP Q6 PRN PRN Reason: Pain, severe (8-10) Last Admin: 12/26/17 05:49 Dose: 15 mg Lactobacillus Acidophilus (Bacid Acidophilus) 1 cap PO BID [facility] Last Admin: 12/26/17 17:44 Dose: 1 cap Nystatin (Nystop Topical Powder) 1 applic TOP TID@0900,1700,2100 [facility] Last Admin: 12/26/17 17:44 Dose: 1 applic Ondansetron HCl (Zofran Odt) 4 mg PO Q4H PRN PRN Reason: Nausea/Vomiting Last Admin: 12/23/17 11:41 Dose: 4 mg Senna/Docusate Sodium (Senokot S 50 Mg-8.6 Mg) 2 tab PO HS [facility] Last Admin: 12/25/17 22:49 Dose: Not Given - Labs Labs: 12/26/17 05:55 12/25/17 08:45 PT 13.6 Seconds (9.8-13.1) H 12/16/17 15:10 INR 1.2 (0.9-1.2) 12/16/17 15:10 APTT 35.1 Seconds (25.6-37.1) 12/15/17 20:42
[2017-12-26] MEDS: Docusate-Senna 50 mg-8.6 mg Tab PO SCH (21:56)
[2017-12-27] MEDS: metroNIDAZOLE 500mg/100ml NS 100 ML IVPB SCH ×2 (07:06→16:59)
--- NOTE | 2017-12-27 08:30 | CP.PCM.PN ---
Subjective - Date & Time of Evaluation Date of Evaluation: 12/27/17 Time of Evaluation: 08:25 - Subjective Subjective: Surgery Pt seen and examined. No acute events. Denies fever, nausea, diarrhea. Pain controlled. Drain in place. Objective - Vital Signs/Intake and Output Vital Signs (last 24 hours): Temp Pulse Resp BP Pulse Ox 98.9 F 81 19 99/59 L 100 12/26/17 22:00 12/26/17 22:00 12/26/17 22:00 12/26/17 22:00 12/26/17 22:00 - Medications Medications: Current Medications Acetaminophen (Tylenol 325mg Tab) 650 mg PO Q6 PRN PRN Reason: Fever >100.4 F Last Admin: 12/23/17 05:35 Dose: 650 mg Acetaminophen (Tylenol 325mg Tab) 650 mg PO Q4 PRN PRN Reason: Pain, Mild (1-3) Last Admin: 12/26/17 21:48 Dose: 650 mg Enoxaparin Sodium (Lovenox) 40 mg SC DAILY DENIS PRN Reason: Protocol Metronidazole (Flagyl 500mg/100ml Ns) 100 mls @ 100 mls/hr IVPB Q8H DENIS PRN Reason: Protocol Last Admin: 12/27/17 07:06 Dose: 100 mls/hr Tobramycin Sulfate 80 mg/ (Sodium Chloride) 102 mls @ 102 mls/hr IVPB Q12 DENIS PRN Reason: Protocol Vancomycin HCl 1 gm/ Sodium (Chloride) 250 mls @ 166.667 mls/hr IVPB Q12@0100, 1300 DENIS PRN Reason: Protocol Last Admin: 12/27/17 01:42 Dose: 166.667 mls/hr Ibuprofen (Motrin Tab) 600 mg PO Q6 PRN PRN Reason: Pain, severe (8-10) Last Admin: 12/23/17 07:52 Dose: 600 mg Ketorolac Tromethamine (Toradol) 15 mg IVP Q6 PRN PRN Reason: Pain, severe (8-10) Last Admin: 12/27/17 00:46 Dose: 15 mg Lactobacillus Acidophilus (Bacid Acidophilus) 1 cap PO BID [facility] Last Admin: 12/26/17 17:44 Dose: 1 cap Nystatin (Nystop Topical Powder) 1 applic TOP TID@0900,1700,2100 [facility] Last Admin: 12/26/17 21:49 Dose: 1 applic Ondansetron HCl (Zofran Odt) 4 mg PO Q4H PRN PRN Reason: Nausea/Vomiting Last Admin: 12/23/17 11:41 Dose: 4 mg Senna/Docusate Sodium (Senokot S 50 Mg-8.6 Mg) 2 tab PO HS [facility] Last Admin: 12/26/17 21:56 Dose: Not Given - Labs Labs: 12/26/17 05:55 12/25/17 08:45 PT 13.6 Seconds (9.8-13.1) H 12/16/17 15:10 INR 1.2 (0.9-1.2) 12/16/17 15:10 APTT 35.1 Seconds (25.6-37.1) 12/15/17 20:42 - Constitutional Appears: No Acute Distress - Head Exam Head Exam: ATRAUMATIC, NORMAL INSPECTION, NORMOCEPHALIC - Eye Exam Eye Exam: EOMI, Normal appearance, PERRL Pupil Exam: NORMAL ACCOMODATION, PERRL - ENT Exam ENT Exam: Mucous Membranes Moist, Normal Exam - Neck Exam Neck Exam: Full ROM, Normal Inspection. absent: Lymphadenopathy - Respiratory Exam Respiratory Exam: Clear to Ausculation Bilateral, NORMAL BREATHING PATTERN - Cardiovascular Exam Cardiovascular Exam: REGULAR RHYTHM, +S1, +S2. absent: Murmur - GI/Abdominal Exam GI & Abdominal Exam: Soft, Normal Bowel Sounds. absent: Distended, Tenderness Additional comments: drains x2 - Exam Exam: NORMAL INSPECTION - Extremities Exam Extremities Exam: Full ROM, Normal Capillary Refill, Normal Inspection. absent : Joint Swelling, Pedal Edema - Back Exam Back Exam: NORMAL INSPECTION - Neurological Exam Neurological Exam: Alert, Awake, CN II-XII Intact, Normal Gait, Oriented x3 - Psychiatric Exam Psychiatric exam: Normal Affect, Normal Mood - Skin Skin Exam: Dry, Intact, Normal Color, Warm Assessment and Plan - Assessment and Plan (Free Text) Assessment: 37F POD 10 s/p laparoscopic abscess drainage Plan: Afebrile Possible DC tomorrow Drain outputs: Upper 80cc/12hr serous, Lower 10/12hr serous May pull lower drain tomorrow if drainage is <50 cc/24hr F/u abx recs from ID Pain meds Regular diet Encourage ambulation Incentive Spirometer D/w Dr. Mcgraw
[2017-12-27] MEDS: Lactobacillus Acidophilus 500 MU Cap PO SCH ×2 (10:25→16:55)
[2017-12-27] MEDS: Enoxaparin 40 mg Syringe SC SCH (10:26)
[2017-12-27 11:41] LABS: BASO # 0.2 K/uL (0.0-0.2); BASO % 2.7 % (0.0-2.0); EOS # 0.5 K/uL (0.0-0.7); HEMOGLOBIN 10.5 g/dL (12.0-16.0); LYMPH % 15.7 % (20.0-40.0); MEAN CELL VOLUME 84.7 fl (81.0-99.0); MEAN CORPUSCULAR HEMOGLOBIN 28.5 pg (27.0-31.0); MEAN CORPUSCULAR HGB CONC 33.7 g/dL (33.0-37.0); MEAN PLATELET VOLUME 8.2 fl (7.2-11.7); MONO # 0.4 K/uL (0.0-0.8); MONO % 5.6 % (0.0-10.0); NEUT # 4.5 K/uL (1.8-7.0); RBC 3.7 Mil/uL (3.80-5.20); RED CELL DISTRIBUTION WIDTH 15.3 % (11.5-14.5); WHITE BLOOD COUNT 6.5 K/uL (4.8-10.8)
--- NOTE | 2017-12-27 19:46 | CP.PCM.PN ---
Subjective - Date & Time of Evaluation Date of Evaluation: 12/27/17 Time of Evaluation: 19:20 - Subjective Subjective: I D NOTE LABS REVIEWED PATIENT WALKING ABOUT ,APPEARS TO BE COMFORTABLE 1 DRAIN REMOVED Objective - Vital Signs/Intake and Output Vital Signs (last 24 hours): Temp Pulse Resp BP Pulse Ox 98 F 92 H 18 100/60 100 12/27/17 16:27 12/27/17 16:27 12/27/17 16:27 12/27/17 16:27 12/27/17 16:27 - Medications Medications: Current Medications Acetaminophen (Tylenol 325mg Tab) 650 mg PO Q6 PRN PRN Reason: Fever >100.4 F Last Admin: 12/23/17 05:35 Dose: 650 mg Acetaminophen (Tylenol 325mg Tab) 650 mg PO Q4 PRN PRN Reason: Pain, Mild (1-3) Last Admin: 12/26/17 21:48 Dose: 650 mg Enoxaparin Sodium (Lovenox) 40 mg SC DAILY DENIS PRN Reason: Protocol Last Admin: 12/27/17 10:26 Dose: Not Given Metronidazole (Flagyl 500mg/100ml Ns) 100 mls @ 100 mls/hr IVPB Q8H DENIS PRN Reason: Protocol Last Admin: 12/27/17 16:59 Dose: 100 mls/hr Tobramycin Sulfate 80 mg/ (Sodium Chloride) 102 mls @ 102 mls/hr IVPB Q12 DENIS PRN Reason: Protocol Last Admin: 12/27/17 10:40 Dose: 102 mls/hr Vancomycin HCl 1 gm/ Sodium (Chloride) 250 mls @ 166.667 mls/hr IVPB Q12@0100, 1300 DENIS PRN Reason: Protocol Last Admin: 12/27/17 12:39 Dose: 166.667 mls/hr Ibuprofen (Motrin Tab) 600 mg PO Q6 PRN PRN Reason: Pain, severe (8-10) Last Admin: 12/27/17 16:55 Dose: 600 mg Ketorolac Tromethamine (Toradol) 15 mg IVP Q6 PRN PRN Reason: Pain, severe (8-10) Last Admin: 12/27/17 00:46 Dose: 15 mg Lactobacillus Acidophilus (Bacid Acidophilus) 1 cap PO BID DENIS Last Admin: 12/27/17 16:55 Dose: 1 cap Nystatin (Nystop Topical Powder) 1 applic TOP TID@0900,1700,2100 [facility] Last Admin: 12/27/17 16:56 Dose: 1 applic Ondansetron HCl (Zofran Odt) 4 mg PO Q4H PRN PRN Reason: Nausea/Vomiting Last Admin: 12/23/17 11:41 Dose: 4 mg Senna/Docusate Sodium (Senokot S 50 Mg-8.6 Mg) 2 tab PO HS [facility] Last Admin: 12/26/17 21:56 Dose: Not Given - Labs Labs: 12/27/17 11:26 12/25/17 08:45 PT 13.6 Seconds (9.8-13.1) H 12/16/17 15:10 INR 1.2 (0.9-1.2) 12/16/17 15:10 APTT 35.1 Seconds (25.6-37.1) 12/15/17 20:42
[2017-12-27] MEDS: Docusate-Senna 50 mg-8.6 mg Tab PO SCH (22:00)
[2017-12-28] MEDS: metroNIDAZOLE 500mg/100ml NS 100 ML IVPB SCH ×2 (00:18→08:37)
--- NOTE | 2017-12-28 07:51 | CP.PCM.PN ---
Subjective - Date & Time of Evaluation Date of Evaluation: 12/28/17 Time of Evaluation: 07:51 - Subjective Subjective: Surgery Patient seen and examined at bedside this AM. No acute events overnight. Pain well controlled. Drain in place, no complaints. Denies N/V/F/D/C/SOB. Objective - Vital Signs/Intake and Output Vital Signs (last 24 hours): Temp Pulse Resp BP Pulse Ox 98.6 F 76 20 98/52 L 97 12/27/17 22:00 12/27/17 22:00 12/27/17 22:00 12/27/17 22:00 12/27/17 22:00 - Medications Medications: Current Medications Acetaminophen (Tylenol 325mg Tab) 650 mg PO Q6 PRN PRN Reason: Fever >100.4 F Last Admin: 12/23/17 05:35 Dose: 650 mg Acetaminophen (Tylenol 325mg Tab) 650 mg PO Q4 PRN PRN Reason: Pain, Mild (1-3) Last Admin: 12/26/17 21:48 Dose: 650 mg Enoxaparin Sodium (Lovenox) 40 mg SC DAILY DENIS PRN Reason: Protocol Last Admin: 12/27/17 10:26 Dose: Not Given Metronidazole (Flagyl 500mg/100ml Ns) 100 mls @ 100 mls/hr IVPB Q8H DENIS PRN Reason: Protocol Last Admin: 12/28/17 00:18 Dose: 100 mls/hr Tobramycin Sulfate 80 mg/ (Sodium Chloride) 102 mls @ 102 mls/hr IVPB Q12 DENIS PRN Reason: Protocol Last Admin: 12/27/17 21:44 Dose: 102 mls/hr Vancomycin HCl 1 gm/ Sodium (Chloride) 250 mls @ 166.667 mls/hr IVPB Q12@0100, 1300 DENIS PRN Reason: Protocol Last Admin: 12/28/17 02:04 Dose: 166.667 mls/hr Ibuprofen (Motrin Tab) 600 mg PO Q6 PRN PRN Reason: Pain, severe (8-10) Last Admin: 12/27/17 22:57 Dose: 600 mg Ketorolac Tromethamine (Toradol) 15 mg IVP Q6 PRN PRN Reason: Pain, severe (8-10) Last Admin: 12/27/17 00:46 Dose: 15 mg Lactobacillus Acidophilus (Bacid Acidophilus) 1 cap PO BID [facility] Last Admin: 12/27/17 16:55 Dose: 1 cap Nystatin (Nystop Topical Powder) 1 applic TOP TID@0900,1700,2100 [facility] Last Admin: 12/27/17 21:58 Dose: 1 applic Ondansetron HCl (Zofran Odt) 4 mg PO Q4H PRN PRN Reason: Nausea/Vomiting Last Admin: 12/23/17 11:41 Dose: 4 mg Senna/Docusate Sodium (Senokot S 50 Mg-8.6 Mg) 2 tab PO HS [facility] Last Admin: 12/27/17 22:00 Dose: Not Given - Labs Labs: 12/27/17 11:26 12/25/17 08:45 PT 13.6 Seconds (9.8-13.1) H 12/16/17 15:10 INR 1.2 (0.9-1.2) 12/16/17 15:10 APTT 35.1 Seconds (25.6-37.1) 12/15/17 20:42 - Constitutional Appears: Non-toxic, No Acute Distress - Head Exam Head Exam: ATRAUMATIC, NORMAL INSPECTION, NORMOCEPHALIC - Eye Exam Eye Exam: EOMI, Normal appearance Pupil Exam: NORMAL ACCOMODATION, PERRL - ENT Exam ENT Exam: Mucous Membranes Moist - Neck Exam Neck Exam: Full ROM - Respiratory Exam Respiratory Exam: NORMAL BREATHING PATTERN - Cardiovascular Exam Cardiovascular Exam: REGULAR RHYTHM - GI/Abdominal Exam GI & Abdominal Exam: Soft. absent: Tenderness Additional comments: Drains x2 - Exam Exam: NORMAL INSPECTION - Extremities Exam Extremities Exam: Full ROM, Normal Capillary Refill, Normal Inspection - Neurological Exam Neurological Exam: Alert, Awake, Oriented x3 - Psychiatric Exam Psychiatric exam: Normal Affect, Normal Mood - Skin Skin Exam: Dry, Intact, Normal Color, Warm Assessment and Plan - Assessment and Plan (Free Text) Assessment: 37F POD 11 s/p laparoscopic abscess drainage Drain outputs: Upper 115cc serous Plan: May pull lower drain tomorrow if drainage is <50 cc/24hr F/u ID recs Regular diet Pain meds Continue IS Encourage ambulation Plan for DC tomorrow D/w Dr. Mcgraw
[2017-12-28 07:54] VITALS: BP 100/56; PULSE 67; RESP 18; TEMP 98.2; O2SAT 98
[2017-12-28] MEDS: Lactobacillus Acidophilus 500 MU Cap PO SCH (08:43)
[2017-12-28 11:35] LABS: BASO # 0.2 K/uL (0.0-0.2); EOS # 0.4 K/uL (0.0-0.7); EOS % 7.4 % (0.0-4.0); HEMOGLOBIN 10.4 g/dL (12.0-16.0); LYMPH % 19.3 % (20.0-40.0); MEAN CORPUSCULAR HEMOGLOBIN 27.8 pg (27.0-31.0); MEAN PLATELET VOLUME 8.2 fl (7.2-11.7); MONO # 0.4 K/uL (0.0-0.8); NEUT # 3.4 K/uL (1.8-7.0); NEUT % 63.3 % (50.0-75.0); RBC 3.73 Mil/uL (3.80-5.20); RED CELL DISTRIBUTION WIDTH 15.5 % (11.5-14.5); WHITE BLOOD COUNT 5.4 K/uL (4.8-10.8)
--- NOTE | 2017-12-28 12:54 | CP.PCM.DIS ---
Provider - Provider Date of Admission: 12/15/17 20:11 Attending physician: Addy Mcgraw MD Primary care physician: Dr. Mcgraw Consults: Dr. Penny - ID Dr. Davis - Linter Operator Time Spent in preparation of Discharge (in minutes): 30 Hospital Course - Lab Results Lab Results: Micro Results 12/16/17 21:30 Blood-Venous Blood Culture - Final NO GROWTH AFTER 5 DAYS 12/16/17 21:30 Blood-Venous Gram Stain - Final TEST NOT PERFORMED 12/16/17 21:30 Blood-Venous Blood Culture - Final NO GROWTH AFTER 5 DAYS 12/19/17 07:39 Naris MRSA Culture (Admit) - Final MRSA NOT DETECTED 12/15/17 20:30 Blood-Venous Blood Culture - Final NO GROWTH AFTER 5 DAYS 12/15/17 20:30 Blood-Venous Gram Stain - Final TEST NOT PERFORMED 12/15/17 20:15 Blood-Venous Blood Culture - Final NO GROWTH AFTER 5 DAYS 12/15/17 20:15 Blood-Venous Gram Stain - Final TEST NOT PERFORMED 12/17/17 14:49 Abscess - Abdominal Gram Stain - Final 12/17/17 14:49 Abscess - Abdominal Wound Culture - Final Escherichia Coli Group G Streptococcus 12/16/17 21:15 Nose MRSA Culture (Admit) - Final MRSA NOT DETECTED 12/15/17 20:42 Urine,Clean Catch Urine Culture - Final No Growth (<1,000 CFU/ML) Most Recent Lab Values WBC 5.4 K/uL (4.8-10.8) 12/28/17 11:25 RBC 3.73 Mil/uL (3.80-5.20) L 12/28/17 11:25 Hgb 10.4 g/dL (12.0-16.0) L 12/28/17 11:25 Hct 31.4 % (34.0-47.0) L 12/28/17 11:25 MCV 84.0 fl (81.0-99.0) 12/28/17 11:25 MCH 27.8 pg (27.0-31.0) 12/28/17 11:25 MCHC 33.0 g/dL (33.0-37.0) 12/28/17 11:25 RDW 15.5 % (11.5-14.5) H 12/28/17 11:25 Plt Count 629 K/uL (130-400) H 12/28/17 11:25 MPV 8.2 fl (7.2-11.7) 12/28/17 11:25 Neut % (Auto) 63.3 % (50.0-75.0) 12/28/17 11:25 Lymph % (Auto) 19.3 % (20.0-40.0) L 12/28/17 11:25 Weld % (Auto) 7.0 % (0.0-10.0) 12/28/17 11:25 Eos % (Auto) 7.4 % (0.0-4.0) H 12/28/17 11:25 Baso % (Auto) 3.0 % (0.0-2.0) H 12/28/17 11:25 Neut # (Auto) 3.4 K/uL (1.8-7.0) 12/28/17 11:25 Lymph # (Auto) 1.0 K/uL (1.0-4.3) 12/28/17 11:25 Weld # (Auto) 0.4 K/uL (0.0-0.8) 12/28/17 11:25 Eos # (Auto) 0.4 K/uL (0.0-0.7) 12/28/17 11:25 Baso # (Auto) 0.2 K/uL (0.0-0.2) 12/28/17 11:25 Neutrophils % (Manual) 82 % (42-75) H 12/25/17 08:45 Band Neutrophils % 1 % (0-2) 12/15/17 20:42 Lymphocytes % (Manual) 7 % (20-50) L 12/25/17 08:45 Reactive Lymphs % 7 % (0-0) H 12/15/17 20:42 Monocytes % (Manual) 6 % (0-10) 12/25/17 08:45 Eosinophils % (Manual) 5 % (0-7) 12/25/17 08:45 Platelet Estimate Increased (NORMAL) H 12/25/17 08:45 Hypochromasia (manual) Slight 12/25/17 08:45 Anisocytosis (manual) Slight 12/25/17 08:45 Macrocytosis (manual) Slight 12/15/17 20:42 Tear Drop Cells Slight 12/15/17 20:42 PT 13.6 Seconds (9.8-13.1) H 12/16/17 15:10 INR 1.2 (0.9-1.2) 12/16/17 15:10 APTT 35.1 Seconds (25.6-37.1) 12/15/17 20:42 pO2 14 mm/Hg (30-55) L 12/16/17 09:05 VBG pH 7.44 (7.32-7.43) H 12/16/17 09:05 VBG pCO2 47 mmHg (40-60) 12/16/17 09:05 VBG HCO3 27.9 mmol/L 12/16/17 09:05 VBG Total CO2 33.3 mmol/L (22-28) H 12/16/17 09:05 VBG O2 Sat (Calc) 23.6 % (40-65) L 12/16/17 09:05 VBG Base Excess 6.6 mmol/L (0.0-2.0) H 12/16/17 09:05 VBG Potassium 4.1 mmol/L (3.6-5.2) 12/16/17 09:05 Sodium 132.0 mmol/L (132-148) 12/16/17 09:05 Chloride 100.0 mmol/L (98-107) 12/16/17 09:05 Glucose 137 mg/dL (65-105) H 12/16/17 09:05 Lactate 1.1 mmol/L (0.7-2.1) 12/16/17 09:05 FiO2 21.0 % 12/16/17 09:05 Crit Value Called To Vivienne guardado md 12/15/17 20:36 Crit Value Called By Rolando 12/15/17 20:36 Crit Value Read Back Y 12/15/17 20:36 Blood Gas Notified Time 204012/15/17 20:36 Sodium 136 mmol/l (132-148) 12/25/17 08:45 Potassium 4.1 MMOL/L (3.6-5.0) 12/25/17 08:45 Chloride 97 mmol/L (98-107) L 12/25/17 08:45 Carbon Dioxide 27 mmol/L (22-30) 12/25/17 08:45 Anion Gap 16 (10-20) 12/25/17 08:45 BUN 10 mg/dl (7-17) 12/25/17 08:45 Creatinine 0.7 mg/dl (0.7-1.2) 12/25/17 08:45 Est GFR ( Amer) > 60 12/25/17 08:45 Est GFR (Non-Af Amer) > 60 12/25/17 08:45 Random Glucose 96 mg/dL (65-105) 12/25/17 08:45 Calcium 8.8 mg/dL (8.4-10.2) 12/25/17 08:45 Phosphorus 4.0 mg/dl (2.5-4.5) 12/15/17 20:42 Magnesium 2.0 MG/DL (1.6-2.3) 12/15/17 20:42 Total Bilirubin 0.5 mg/dl (0.2-1.3) 12/25/17 08:45 AST 44 U/L (14-36) H D 12/25/17 08:45 ALT 58 U/L (9-52) H D 12/25/17 08:45 Alkaline Phosphatase 89 U/L (38-126) 12/25/17 08:45 Total Protein 6.9 G/DL (6.3-8.2) 12/25/17 08:45 Albumin 3.3 g/dL (3.5-5.0) L D 12/25/17 08:45 Globulin 3.6 gm/dL (2.2-3.9) 12/25/17 08:45 Albumin/Globulin Ratio 0.9 (1.0-2.1) L 12/25/17 08:45 Lipase 66 U/L (23-300) 12/15/17 20:42 Venous Blood Potassium 4.1 mmol/L (3.6-5.2) 12/16/17 09:05 Urine Color Straw (YELLOW) 12/15/17 20:42 Urine Clarity Slighty-cloudy (Clear) 12/15/17 20:42 Urine pH 7.0 (5.0-8.0) 12/15/17 20:42 Ur Specific [place] < 1.005 (1.003-1.030) 12/15/17 20:42 Urine Protein Negative mg/dL (NEGATIVE) 12/15/17 20:42 Urine Glucose (UA) Neg mg/dL (Normal) 12/15/17 20:42 Urine Ketones 20 mg/dL (NEGATIVE) 12/15/17 20:42 Urine Blood Moderate (NEGATIVE) 12/15/17 20:42 Urine Nitrate Negative (NEGATIVE) 12/15/17 20:42 Urine Bilirubin Negative (NEGATIVE) 12/15/17 20:42 Urine Urobilinogen 0.2-1.0 mg/dL (0.2-1.0) 12/15/17 20:42 Ur Leukocyte Esterase Small Alisha/uL (Negative) 12/15/17 20:42 Urine RBC (Auto) 2 /hpf (0-3) 12/15/17 20:42 Urine Microscopic WBC 20 /hpf (0-5) H 12/15/17 20:42 Ur Squamous Epith Cells 9 /hpf (0-5) H 12/15/17 20:42 Urine Bacteria Rare (<OCC) 12/15/17 20:42 Vancomycin Trough 8.8 ug/mL (5.0-10.0) 12/24/17 20:51 Random Vancomycin 12.2 ug/mL 12/20/17 15:01 Blood Type O POSITIVE 12/17/17 11:40 Antibody Screen Negative 12/17/17 11:40 BBK History Checked Patient has bt 12/17/17 11:40 - Hospital Course Hospital Course: 37 F w PMH of ovarian abscess and had recent robotic laparoscopic surgery for ovarian abscess cystectomy, appendectomy and endometriosis removal last Sunday came to ED on 12/16/17 with fever and abd pain. Patient was found to have pelvic abscess and was taken to OR on 12/17/17 for laparoscopic drainage of pelvic abscess placement of drains. Patient underwent attempted CT guided pelvic abscess drainage though no fluid aspirated. Patient had uneventful recovery, and will be discharged home with Clindamycin 300 BID and Ciprofloxacin 500mg BID x 2 weeks, and Diflucan 150mg PO qd x3 days. Patient will follow up with Dr. Davis in 10-14 days. Further detail of hospital course in pt chart. Discharge Exam - Head Exam Head Exam: ATRAUMATIC, NORMAL INSPECTION, NORMOCEPHALIC - Eye Exam Eye Exam: EOMI, Normal appearance Pupil Exam: NORMAL ACCOMODATION - ENT Exam ENT Exam: Mucous Membranes Moist - Neck Exam Neck exam: Full Rom - Respiratory Exam Respiratory Exam: NORMAL BREATHING PATTERN - Cardiovascular Exam Cardiovascular Exam: REGULAR RHYTHM - GI/Abdominal Exam GI & Abdominal Exam: Soft, Unremarkable. absent: Distended, Guarding, Tenderness - Exam Exam: NORMAL INSPECTION - Extremities Exam Extremities exam: full ROM, normal inspection - Neurological Exam Neurological exam: Alert, Oriented x3 - Psychiatric Exam Psychiatric exam: Normal Affect, Normal Mood - Skin Skin Exam: Dry, Intact, Normal Color, Warm Discharge Plan - Discharge Medications Prescriptions: Ciprofloxacin [Cipro] 500 mg PO BID #28 tab Clindamycin [Cleocin] 300 mg PO BID #28 cap Fluconazole [Diflucan] 150 mg PO DAILY #3 tab - Follow Up Plan Condition: FAIR Disposition: HOME/ ROUTINE Instructions: Abscess Drainage, Percutaneous (DC), Abscess (GEN) Additional Instructions: - Cleared for discharge - Follow up with Dr. Davis in 10-14 days (call for appointment) - Take Antibiotics to completion, as directed: Ciprofloxacin 500mg PO BID for 2 weeks Clindamycin 300mg PO BID for 2 weeks - Take Antifungal to completion, as directed: Diflucan 150mg PO Daily for 3 days - Your prescriptions have been called into your pharmacy: [facility] ( [place], [place]) [phone]. - Use OTC ibuprofen as directed, as needed for pain - You may shower in 48 hours. No Bathing, no Pools. Replace previous drain dressing as needed. Do not remove skin glue (dermabond) from surgical incisions , allow to fall off on its own. - No heavy lifting (>10 lbs) for the next 2 weeks - No dietary restrictions - Return to the ER with any concerning symptoms. Referrals: Rafa Davis [Medical Doctor] - Rancho Bell MD [Staff Provider] -
[2017-12-28] MEDS: Enoxaparin 40 mg Syringe SC SCH (13:32)
--- NOTE | 2018-01-01 11:22 | PQF SEPSIS ---
Dr. Mcgraw "sepsis status post robotic surgery" is documented. Was pt's diagnosis of sepsis a postoperative complication? This form is a permanent part of the medical record Clarification of your documentation is requested to better reflect the severity of illness and intensity of treatment of your patient. Indicators present [] Temp < 96.8 or > 100.4 [] WBC count > 12,000/mm3 or <000/mm3 or 10% immature neutrophils [] Heart Rate > 90 [] Respiratory Rate > 20 [] Fever or hypothermia [] Chills [] Positive blood cultures [] Hypotension [] Metabolic acidosis (Elevated lactate level, anion gap or reduced blood pH) [] Acute confusion /Altered Mental Status [] Shock [] Other: [] Location in the medical record that reflects the above clinical findings: [] Treatment Provided: [] PHYSICIAN'S RESPONSE Based on your medical judgment of the clinical indicators outlined above, are you treating this patient for a known or suspected: [] Sepsis / Septicemia Please specify organism if known [] [] SIRS (Systemic Inflammatory Response Syndrome) [] Severe Sepsis (Sepsis with Associated Organ Dysfunction) [] Fever of Unknown Origin [] Other, please indicate: [] [] If Unable to Determine, please check the box, sign and date. Present On Admission (POA) Indicator: [] Present at the time of admission [] Not present at the time of admission [] Clinically Undetermined In responding to this query, please exercise your independent professional judgment. The fact that a question is asked does not imply that any particular answer is desired or expected. Thank you for your clarification on this documentation. If you have any questions please call:[ ] * Thank you, [ ] quality control lead LEILANI
== END 2017-12-28 14:50 | disposition home or self-care (01) | DRG 856 ==
LOC: H.ER 19:39 → H.ERHOLD 20:11 → H.MEDSURG1 12-16 03:57 → H.ICU/CCU 12-16 20:26 → H.MEDSURG1 12-19 15:50
PROVIDERS: ADMIT Surgery; ATTEND Surgery
PROC: 0W9G4ZZ Drainage of Peritoneal Cavity, Percutaneous Endoscopic Approach (ICD-10-PCS; 2017-12-17)
PROC: 0W9J40Z Drainage of Pelvic Cavity with Drainage Device, Percutaneous Endoscopic Approach (ICD-10-PCS; principal; 2017-12-17 12:00)
PROC: 0WJJ3ZZ Inspection of Pelvic Cavity, Percutaneous Approach (ICD-10-PCS; 2017-12-25)
DX: T81.4XXA Infection following a procedure, initial encounter (principal); K65.1 Peritoneal abscess; A41.51 Sepsis due to Escherichia coli [E. coli]; D62 Acute posthemorrhagic anemia; J95.89 Other postprocedural complications and disorders of respiratory system, not elsewhere classified; J98.11 Atelectasis; Z88.0 Allergy status to penicillin; Z87.891 Personal history of nicotine dependence; J45.909 Unspecified asthma, uncomplicated; Y83.8 Other surgical procedures as the cause of abnormal reaction of the patient, or of later complication, without mention of misadventure at the time of the procedure; Z88.2 Allergy status to sulfonamides; N73.9 Female pelvic inflammatory disease, unspecified; E86.1 Hypovolemia